=== PATIENT | female | born 1935 | race African-American/Black ===

== ENCOUNTER → 2016-10-06 | Outpatient (CLI) | payer MEDICARE, OTHER ==
--- NOTE | 2016-10-06 15:32 | RAD ---
Ultrasound of the right internal jugular vein 10/06/2016 Clinical history: History of Right internal jugular vein thrombosis. Technique: Using a combination of real-time ultrasound imaging and color-flow. Imaging techniques, duplex evaluation of the right internal jugular vein was performed. Multiple images were obtained. Findings: Comparison study is dated 08/03/2016. A central venous catheter is seen coursing along the portion of the right internal jugular vein, unchanged in position. Echogenic nonocclusive thrombus surrounds a portion of this catheter within the right internal jugular vein. This has improved since the previous examination. No new area of thrombosis is seen. Impression: Nonocclusive thrombus is seen involving the midportion of the right internal jugular vein which has improved since the previous study.
== END | disposition home or self-care (01) ==
LOC: CT 12:50
PROVIDERS: ATTEND Nurse Practitioner Family
DX: I82.C11 Acute embolism and thrombosis of right internal jugular vein (principal); Z86.718 Personal history of other venous thrombosis and embolism
CPT/HCPCS: 76536

== ENCOUNTER 2017-05-02 11:44 | Inpatient (IN) | payer MEDICARE, OTHER ==
[~2017-05-02] VITALS: Ht 157.5 cm; Wt 78.3 kg
[2017-05-02] MEDS ORDERED: FURO-69 PO (12:07)
[2017-05-02] MEDS ORDERED: CYCL5TAB PO (12:07)
[2017-05-02] MEDS ORDERED: POTA20TA82 PO (12:07)
[2017-05-02] MEDS ORDERED: METO50TA6 PO (12:07)
[2017-05-02] MEDS ORDERED: INSU100V31 SQ (12:07)
[2017-05-02] MEDS ORDERED: INSU100V13 SQ (12:07)
[2017-05-02] MEDS ORDERED: LEVO75TA5 PO (12:07)
[2017-05-02] MEDS ORDERED: ASPI325T8 PO (12:07)
[2017-05-02] MEDS ORDERED: RANI150T2 PO (12:07)
[2017-05-02] MEDS ORDERED: GABA-585 PO (12:07)
[2017-05-02] MEDS ORDERED: LEVO100T PO (12:10)
[2017-05-02 13:29] VITALS: BP 160/63
[2017-05-02] MEDS ORDERED: IV NORMAL SALINE 1,000ML 1,000 ML IV SCH (14:17)
[2017-05-02] MEDS ORDERED: APIX2.5T PO ×2 (14:28→17:44)
[2017-05-02] MEDS ORDERED: ONDANSETRON PF 4 MG/2 ML VIAL. IV PRN (14:30)
[2017-05-02] MEDS ORDERED: ACETAMINOPHEN 325 MG TABLET PO PRN (14:30)
[2017-05-02 14:32] LABS: BASO % 1 % (0-3); EOS % 0 % (0-3); HEMATOCRIT 34.2 % (36.0-47.0); HEMOGLOBIN 11.5 g/dL (12.0-15.5); LYMPH # 0.4 x10^3/uL (1.0-4.8); LYMPH % 10 % (24-48); MEAN CORPUSCULAR HEMOGLOBIN 30 pg (25-35); MEAN CORPUSCULAR HGB CONC 34 g/dL (31-37); MEAN CORPUSCULAR VOLUME 89 fL (79-100); MONO # 0.8 x10^3/uL (0.0-1.1); MONO % 20 % (0-9); NEUT # 2.8 x10^3uL (1.8-7.7); NEUT % 69 % (31-73); PLATELET COUNT 126 x10^3/uL (140-400); RED BLOOD COUNT 3.84 x10^6/uL (3.50-5.40); RED CELL DISTRIBUTION WIDTH 14.1 % (11.5-14.5)
[2017-05-02 14:52] LABS: ALBUMIN 3.1 g/dL (3.4-5.0); ALBUMIN/GLOBULIN RATIO 0.9 (1.0-1.7); CALCIUM 8.7 mg/dL (8.5-10.1); CREATININE 1.8 mg/dL (0.6-1.0); TOTAL PROTEIN 6.5 g/dL (6.4-8.2)
[2017-05-02 14:53] LABS: GFR 32.5; MAGNESIUM 1.5 mg/dL (1.8-2.4); POTASSIUM 4.1 mmol/L (3.5-5.1); TOTAL BILIRUBIN 0.5 mg/dL (0.2-1.0)
[2017-05-02] MEDS ORDERED: CYCLOBENZAPRINE 10 MG TABLET. PO SCH (15:00)
[2017-05-02 15:03] LABS: INFLUENZA A PATIENT NEGATIVE (NEGATIVE); INFLUENZA B PATIENT POSITIVE (NEGATIVE)
[2017-05-02] MEDS ORDERED: HYDROcodone/CHLORPHEN POLIS 5 ML SUS.ER.12H PO PRN (15:15)
[2017-05-02 15:19] LABS: % ATYL 1 % (0-0); % BANDS 4 % (0-9); % EOS 0 % (0-5); % LYMPHS 7 % (24-48); % MONOS 20 % (0-10); % SEGS 68 % (35-66); PLATELET CLUMP PRESENT; PLT ESTIMATE DECREASED (ADEQUATE)
--- NOTE | 2017-05-02 15:19 | RAD ---
CHEST AP ONLY History: [id number] cough and fever x's 3 days. Comparison: None. Findings: Cardiomediastinal silhouette is within normal limits for portable technique. Mild hazy opacity at the left lung base and to a lesser extent the right lung base. No dense lobar consolidation. No pneumothorax identified. No evidence of pleural effusion. Right chest wall port is identified. The tip overlies the right upper superior vena cava. Impression: Mild hazy opacity at both lower lungs, compatible with atelectasis or possibly mild infiltrate. No prior study available for comparison. Electronically signed by: Billy Jain MD (05/02/2017 3:15 PM) [id number]
[2017-05-02 15:20] LABS: STOMATOCYTES PRESENT; TOXIC GRANULATION PRESENT; TOXIC VACUOLATION MARKED
[2017-05-02] MEDS ORDERED: OSELTAMIVIR 75 MG CAPSULE PO SCH (16:00)
[2017-05-02] MEDS ORDERED: MAGNESIUM SULFATE 2GM 50 ML IV ONE (16:00)
[2017-05-02] MEDS ORDERED: INSULIN ASPART 30 UNIT SQ SCH (16:30)
[2017-05-02] MEDS: INSULIN ASPART 300 UNITS/3 ML INSULN.PEN SQ SCH ×3 (16:30→22:44)
[2017-05-02] MEDS: AZITHROMYCIN 500 MG in IV NORMAL SALINE 250ML 250 ML IV SCH (16:34)
[2017-05-02] MEDS: IV 1/2 NORMAL SALINE 1,000 ML IV SCH (16:34)
[2017-05-02] MEDS: cefTRIAXone IV Push 1 GM VIAL. IVP SCH (16:35)
[2017-05-02] MEDS: OSELTAMIVIR 30 MG CAPSULE PO SCH (17:00)
[2017-05-02] MEDS ORDERED: methylPREDNISolone SOD SUCC PF 125 MG/2 ML VIAL. IV ONE (18:00)
[2017-05-02] MEDS ORDERED: CYCLOBENZAPRINE 10 MG TABLET. PO PRN (19:30)
[2017-05-02 19:53] VITALS: BP 145/65
[2017-05-02] MEDS ORDERED: NON FORMULARY ITEM (Insulin Detemir (Levemir) 40 UNIT) SQ SCH (21:00)
[2017-05-02] MEDS: IPRATRPIUM/ALBUTEROL 0.5/2.5MG 3 ML NEBU. NEB SCH (21:28)
[2017-05-02] MEDS: APIXABAN 2.5 MG TABLET PO SCH (22:08)
[2017-05-02] MEDS: GABAPENTIN 100 MG CAPSULE. PO SCH (22:08)
[2017-05-02] MEDS: FAMOTIDINE 20 MG TABLET PO SCH (22:08)
[2017-05-02] MEDS: METOPROLOL TART IMMED RELEASE 50 MG TABLET PO SCH (22:09)
[2017-05-02] MEDS: INSULIN DETEMIR 300 UNITS/3 ML INSULN.PEN. SQ SCH (22:42)
[2017-05-02 23:00] VITALS: BP 119/61
[2017-05-03] MEDS: IV 1/2 NORMAL SALINE 1,000 ML IV SCH (03:57)
[2017-05-03] MEDS: IPRATRPIUM/ALBUTEROL 0.5/2.5MG 3 ML NEBU. NEB SCH ×4 (05:48→21:02)
[2017-05-03 06:33] VITALS: BP 114/63
[2017-05-03] MEDS: LEVOTHYROXINE 75 MCG TABLET PO SCH (06:42)
[2017-05-03 06:49] LABS: BASO % 0 % (0-3); EOS % 0 % (0-3); HEMATOCRIT 36.1 % (36.0-47.0); LYMPH # 0.6 x10^3/uL (1.0-4.8); LYMPH % 24 % (24-48); MEAN CORPUSCULAR HEMOGLOBIN 30 pg (25-35); MEAN CORPUSCULAR HGB CONC 33 g/dL (31-37); MEAN CORPUSCULAR VOLUME 90 fL (79-100); MONO # 0.1 x10^3/uL (0.0-1.1); MONO % 3 % (0-9); NEUT # 1.7 x10^3uL (1.8-7.7); NEUT % 73 % (31-73); PLATELET COUNT 168 x10^3/uL (140-400); RED BLOOD COUNT 4.02 x10^6/uL (3.50-5.40); RED CELL DISTRIBUTION WIDTH 13.7 % (11.5-14.5); WHITE BLOOD COUNT 2.4 x10^3/uL (4.0-11.0)
[2017-05-03 06:54] LABS: ALBUMIN 2.6 g/dL (3.4-5.0); ALBUMIN/GLOBULIN RATIO 0.6 (1.0-1.7); CALCIUM 8.4 mg/dL (8.5-10.1); CREATININE 1.8 mg/dL (0.6-1.0); GFR 32.5; POTASSIUM 4.2 mmol/L (3.5-5.1); TOTAL BILIRUBIN 0.2 mg/dL (0.2-1.0); TOTAL PROTEIN 6.7 g/dL (6.4-8.2)
[2017-05-03 07:16] LABS: BILIRUBIN,URINE NEG (NEG); CLARITY,URINE CLEAR; COLOR,URINE YELLOW; GLUCOSE,URINE 100 mg/dL (NEG); NITRITE,URINE NEG (NEG); UROBILINOGEN,URINE 0.2 mg/dL (0.2 mg/dL)
[2017-05-03 07:17] LABS: BACTERIA,URINE 0 /HPF (0-FEW); SQUAMOUS EPITHELIAL CELL,UR OCC /LPF; WBC,URINE 0 /HPF (0-4)
[2017-05-03] MEDS: INSULIN ASPART 300 UNITS/3 ML INSULN.PEN SQ SCH ×6 (07:30→21:33)
[2017-05-03] MEDS: POTASSIUM CHLORIDE 20 MEQ TABLET.ER. PO SCH ×2 (08:38→08:39)
[2017-05-03] MEDS: FUROSEMIDE 20 MG TABLET PO SCH ×2 (08:38→08:40)
[2017-05-03] MEDS: METOPROLOL TART IMMED RELEASE 50 MG TABLET PO SCH ×3 (08:38→21:13)
[2017-05-03] MEDS: APIXABAN 2.5 MG TABLET PO SCH ×2 (08:40→21:12)
[2017-05-03] MEDS: OSELTAMIVIR 30 MG CAPSULE PO SCH (08:40)
[2017-05-03] MEDS: GABAPENTIN 100 MG CAPSULE. PO SCH ×2 (08:40→21:13)
[2017-05-03] MEDS: methylPREDNISolone SOD SUCC PF 125 MG/2 ML VIAL. IV SCH ×3 (08:40→22:00)
[2017-05-03] MEDS: FAMOTIDINE 20 MG TABLET PO SCH ×2 (08:40→21:13)
[2017-05-03] MEDS ORDERED: ASPIRIN 325 MG TABLET PO SCH (09:00)
[2017-05-03] MEDS: IV NORMAL SALINE 1,000ML 1,000 ML IV SCH ×2 (11:06→22:32)
[2017-05-03 11:10] VITALS: BP 131/67
[2017-05-03] MEDS ORDERED: guaiFENesin DM 200MG/20MG 10 ML SYRUP PO PRN (12:30)
--- NOTE | 2017-05-03 13:51 | RAD ---
Indication: Dyspnea. Influenza positive. Elevated d-dimer. Technique: Ventilation imaging utilized 21 mCi xenon-133 inhaled. Perfusion imaging utilized 5.5 mCi technetium 99m labeled MAA IV. There is a chest radiograph from yesterday available for correlation. Findings: There is homogeneous uptake of radiotracer on ventilation imaging with mild retention on washout. No matched or mismatched defect on perfusion imaging is apparent. There is a defect related to the patient's port. Impression: Exam is low probability for pulmonary embolism. Retention of radiotracer on ventilation imaging can be a finding of air trapping.
[2017-05-03] MEDS: cefTRIAXone IV Push 1 GM VIAL. IVP SCH (15:08)
[2017-05-03] MEDS: AZITHROMYCIN 500 MG in IV NORMAL SALINE 250ML 250 ML IV SCH (16:04)
[2017-05-03 19:32] VITALS: BP 118/69
[2017-05-03 20:00] VITALS: BP 139/70
[2017-05-03] MEDS: INSULIN DETEMIR 300 UNITS/3 ML INSULN.PEN. SQ SCH (21:33)
--- NOTE | 2017-05-04 03:22 | PN ---
DATE: 05/03/2017 SUBJECTIVE: An 81-year-old female in with pneumonia and influenza B. The patient is making good progress overall. She says she is feeling much better overall. OBJECTIVE: VITAL SIGNS: Blood pressure 130/70, respiratory rate 20, pulse 60, afebrile. LUNGS: Diminished throughout, poor movement of air, but otherwise improved. CARDIOVASCULAR: Regular sinus rhythm, S1, S2, without murmur, rub, thrill, or extra heart sounds. ABDOMEN: Soft, nontender, no rebound or guarding. EXTREMITIES: No clubbing, cyanosis or edema. NEUROLOGIC: Pleasantly alert and oriented x 3. LABORATORY DATA: Blood sugar still somewhat elevated. Continue to monitor on that. IMPRESSION: Therefore of: 1. Influenza B with respiratory symptoms and manifestations. 2. Pneumonia of unspecified etiology, probable from influenza B. 3. Chronic kidney disease. 4. Type 2 diabetes. 5. Xoma-ep-fxdmjjnd protein malnutrition. PLAN: Continue with IV antibiotic therapy, aggressive pulmonary toilet. Make further evaluation on her as indicated per those results. MARS OBRIEN MD DR: JONO/andry JOB#: [id number] / [id number]
[2017-05-04 05:00] VITALS: BP 127/69
[2017-05-04] MEDS: IPRATRPIUM/ALBUTEROL 0.5/2.5MG 3 ML NEBU. NEB SCH (05:40)
[2017-05-04] MEDS: LEVOTHYROXINE 75 MCG TABLET PO SCH (05:42)
[2017-05-04] MEDS: methylPREDNISolone SOD SUCC PF 125 MG/2 ML VIAL. IV SCH (05:43)
[2017-05-04 06:40] LABS: CALCIUM 8.5 mg/dL (8.5-10.1); CREATININE 1.5 mg/dL (0.6-1.0); GFR 40.1
[2017-05-04 07:36] VITALS: BP 110/73
[2017-05-04] MEDS: OSELTAMIVIR 30 MG CAPSULE PO SCH (07:41)
[2017-05-04] MEDS: FAMOTIDINE 20 MG TABLET PO SCH (07:41)
[2017-05-04] MEDS: APIXABAN 2.5 MG TABLET PO SCH (07:41)
[2017-05-04] MEDS: FUROSEMIDE 20 MG TABLET PO SCH (07:41)
[2017-05-04] MEDS: GABAPENTIN 100 MG CAPSULE. PO SCH (07:41)
[2017-05-04] MEDS: INSULIN ASPART 300 UNITS/3 ML INSULN.PEN SQ SCH (07:42)
[2017-05-04] MEDS: POTASSIUM CHLORIDE 20 MEQ TABLET.ER. PO SCH (07:43)
[2017-05-04 09:00] VITALS: BP 100/62
[2017-05-04] MEDS: METOPROLOL TART IMMED RELEASE 50 MG TABLET PO SCH (09:00)
[2017-05-04] MEDS ORDERED: OSEL30CA PO (10:49)
[2017-05-04] MEDS ORDERED: DOXY100C2 PO (10:49)
[2017-05-04] MEDS ORDERED: PRED-220 PO (10:49)
[2017-05-04] MEDS ORDERED: predniSONE 10 MG TABLET ONE (11:12)
[2017-05-04] MEDS ORDERED: predniSONE 10 MG TABLET PO ONE (11:30)
[2017-05-04] MEDS ORDERED: AZITHROMYCIN 250 MG TABLET. PO SCH (17:00)
== END 2017-05-04 11:24 | disposition home or self-care (01) | DRG 194 ==
LOC: ICU 11:44 → UNDOADMIN 11:44 → ICU 12:58
PROVIDERS: ADMIT Family Medicine; ATTEND Family Medicine
DX: J10.01 Influenza due to other identified influenza virus with the same other identified influenza virus pneumonia (principal); E44.0 Moderate protein-calorie malnutrition; E11.22 Type 2 diabetes mellitus with diabetic chronic kidney disease; E11.40 Type 2 diabetes mellitus with diabetic neuropathy, unspecified; N18.9 Chronic kidney disease, unspecified; E03.9 Hypothyroidism, unspecified; I12.9 Hypertensive chronic kidney disease with stage 1 through stage 4 chronic kidney disease, or unspecified chronic kidney disease; Z79.4 Long term (current) use of insulin; Z85.3 Personal history of malignant neoplasm of breast; Z98.42 Cataract extraction status, left eye; Z98.41 Cataract extraction status, right eye; Z90.12 Acquired absence of left breast and nipple; Z88.2 Allergy status to sulfonamides; Z88.8 Allergy status to other drugs, medicaments and biological substances; Z68.31 Body mass index [BMI] 31.0-31.9, adult; K30 Functional dyspepsia; Z87.891 Personal history of nicotine dependence
CPT/HCPCS: 36415; 71045; 78582; 80048; 80053; 81001; 82947; 83605; 83735; 83880; 85007; 85025; 85379; 87040; 87086; 87641; 87804; 94640; 96374; A9540; A9558; J0456; J0696; J1815; J2930; J3475; J7030; J7050; J7512; J7620

== ENCOUNTER 2017-09-29 13:41 | Inpatient (IN) | payer MEDICARE, OTHER ==
[~2017-09-29] VITALS: Ht 142.2 cm; Wt 86.7 kg
[~2017-09-29 13:41] MED LIST: APIX2.5T PO; ASPI325T8 PO; CYCL5TAB PO; DOXY100C2 PO; FURO-69 PO; GABA-585 PO; INSU100V13 SQ; INSU100V31 SQ; LEVO100T PO; LEVO75TA5 PO; METO50TA6 PO; OSEL30CA PO; POTA20TA82 PO; PRED-220 PO; RANI150T2 PO
[2017-09-29 14:28] VITALS: BP 145/72
[2017-09-29 15:01] LABS: BASO # 0.1 x10^3/uL (0.0-0.2); BASO % 1 % (0-3); EOS % 1 % (0-3); HEMATOCRIT 38.1 % (36.0-47.0); HEMOGLOBIN 13.2 g/dL (12.0-15.5); LYMPH % 15 % (24-48); MEAN CORPUSCULAR HEMOGLOBIN 32 pg (25-35); MEAN CORPUSCULAR HGB CONC 35 g/dL (31-37); MEAN CORPUSCULAR VOLUME 92 fL (79-100); MONO # 0.5 x10^3/uL (0.0-1.1); MONO % 8 % (0-9); NEUT # 4.9 x10^3uL (1.8-7.7); NEUT % 76 % (31-73); PLATELET COUNT 227 x10^3/uL (140-400); RED BLOOD COUNT 4.16 x10^6/uL (3.50-5.40); WHITE BLOOD COUNT 6.5 x10^3/uL (4.0-11.0)
[2017-09-29 15:14] LABS: ALBUMIN 3.6 g/dL (3.4-5.0); ALBUMIN/GLOBULIN RATIO 0.8 (1.0-1.7); CREATININE 1.4 mg/dL (0.6-1.0); GFR 43.5; POTASSIUM 3.9 mmol/L (3.5-5.1); TOTAL BILIRUBIN 0.7 mg/dL (0.2-1.0); TOTAL PROTEIN 8.1 g/dL (6.4-8.2)
--- NOTE | 2017-09-29 16:19 | EKG ---
[address] [address] Test Date: 2017-09-29 Test Time: 15:34:43 Pat Name: ANGELINA BRUNNER Department: Room: 109 A Gender: F Circle Beveler: DL : 1935 Requested By: MARS OBRIEN Order Number: [id number] Reading MD: Measurements Intervals [place] Rate: 70 P: 47 MA: 194 QRS: -12 QRSD: 74 T: 64 QT: 422 QTc: 459 Interpretive Statements SINUS RHYTHM LEFTWARD AXIS OTHERWISE NORMAL ECG RI6.01 No previous ECG available for comparison
--- NOTE | 2017-09-29 16:21 | RAD ---
AP and Lateral Views of the Chest 09/29/2017 4:56 PM Indication: chest pain Comparison: Chest radiograph May 02, 2017 Findings: There is no focal consolidation or infiltrate identified. Heart size is normal. There is no evidence of pneumothorax or pleural effusion. No acute osseous changes are identified. Impression: No evidence of acute cardiopulmonary process. Electronically signed by: Sp Raygoza MD (09/29/2017 4:17 PM) [facility]
[2017-09-29] MEDS ORDERED: PNEUMOC CONJ VACC 23-VALENT 0.5 ML VIAL. VAX IM ONE (16:30)
[2017-09-29 19:24] VITALS: BP 148/81
[2017-09-29 20:16] LABS: BILIRUBIN,URINE NEG (NEG); CLARITY,URINE CLEAR; COLOR,URINE YELLOW; GLUCOSE,URINE NEG (NEG); NITRITE,URINE NEG (NEG); UROBILINOGEN,URINE 0.2 mg/dL (0.2 mg/dL)
[2017-09-29 20:19] LABS: BACTERIA,URINE 0 /HPF (0-FEW); RBC,URINE 0 /HPF (0-2); SQUAMOUS EPITHELIAL CELL,UR OCC /LPF; WBC,URINE RARE /HPF (0-4)
[2017-09-29] MEDS: APIXABAN 2.5 MG TABLET PO SCH (20:56)
[2017-09-29] MEDS: GABAPENTIN 100 MG CAPSULE. PO SCH (20:56)
[2017-09-29] MEDS: FAMOTIDINE 20 MG TABLET PO SCH (20:57)
[2017-09-29] MEDS: CYCLOBENZAPRINE 10 MG TABLET. PO SCH (20:57)
[2017-09-29] MEDS ORDERED: NON FORMULARY ITEM (Doxycycline Hyclate 1 CAP) PO SCH (21:00)
[2017-09-29] MEDS ORDERED: METOPROLOL TART IMMED RELEASE 50 MG TABLET PO SCH (21:00)
[2017-09-29] MEDS ORDERED: [UNRECOGNIZED DRUG - CODE] PO (21:00)
[2017-09-29] MEDS ORDERED: INSULIN GLARGINE 300 UNITS/3 ML INSULN.PEN. SQ SCH (21:00)
[2017-09-29] MEDS: HEPARIN PF for SUB-Q USE 5,000 UNIT/0.5 ML VIAL. SQ SCH (21:07)
--- NOTE | 2017-09-29 21:41 | NUR ---
The patient, ANGELINA BRUNNER, 81 y/o, F admitted by MARS OBRIEN MD, was given written information regarding hospital policies, unit procedures and contact persons. Valuables were checked and left at bedside.
[2017-09-29] MEDS ORDERED: DEXTROSE 50% 25 GM / 50ML DISP.SYRIN. IV PRN (21:45)
--- NOTE | 2017-09-29 22:22 | RAD ---
EXAM: VENTILATION/PERFUSION SCINTIGRAPHY. HISTORY: Elevated d-dimer, shortness of breath, chest pain. Assess for pulmonary embolism. TECHNIQUE: 38 mCi Xe-133 was inhaled and ventilation images were obtained. 6 mCi Tc-99m MAA was injected intravenously and perfusion images were obtained in multiple projections. COMPARISON: May 03, 2017, chest radiograph September 29, 2017. FINDINGS: Ventilation images demonstrate no clear ventilatory defects. There is radiotracer retention in the left apex. Perfusion images demonstrate no segmental defects. There is no clear change in the perfusion images since the prior study. IMPRESSION: 1. Low probability for pulmonary embolism. 2. Radiotracer retention in the left apex. Correlate for chronic obstructive pulmonary disease or other causes of focal air trapping. Electronically signed by: Hai Hutton MD (09/29/2017 10:18 PM) [facility]
[2017-09-29 23:03] VITALS: BP 147/79
[2017-09-30] MEDS: LEVOTHYROXINE 75 MCG TABLET PO SCH (05:01)
[2017-09-30] MEDS: HEPARIN PF for SUB-Q USE 5,000 UNIT/0.5 ML VIAL. SQ SCH ×2 (05:04→14:45)
[2017-09-30 05:12] VITALS: BP 132/73
[2017-09-30 07:19] LABS: BASO % 0 % (0-3); EOS # 0.1 x10^3/uL (0.0-0.7); EOS % 1 % (0-3); HEMATOCRIT 34.6 % (36.0-47.0); HEMOGLOBIN 11.7 g/dL (12.0-15.5); LYMPH # 1.7 x10^3/uL (1.0-4.8); LYMPH % 35 % (24-48); MEAN CORPUSCULAR HEMOGLOBIN 31 pg (25-35); MEAN CORPUSCULAR HGB CONC 34 g/dL (31-37); MEAN CORPUSCULAR VOLUME 93 fL (79-100); MONO # 0.6 x10^3/uL (0.0-1.1); MONO % 12 % (0-9); NEUT # 2.5 x10^3uL (1.8-7.7); NEUT % 52 % (31-73); PLATELET COUNT 211 x10^3/uL (140-400); RED BLOOD COUNT 3.74 x10^6/uL (3.50-5.40); RED CELL DISTRIBUTION WIDTH 14.2 % (11.5-14.5); WHITE BLOOD COUNT 4.8 x10^3/uL (4.0-11.0)
[2017-09-30 07:25] LABS: CALCIUM 8.7 mg/dL (8.5-10.1); CREATININE 1.3 mg/dL (0.6-1.0); GFR 47.3; POTASSIUM 3.3 mmol/L (3.5-5.1)
[2017-09-30] MEDS: INSULIN LISPRO 300 UNITS/3 ML INSULN.PEN. SQ SCH ×3 (08:00→17:03)
[2017-09-30] MEDS: ASPIRIN 325 MG TABLET PO SCH (08:30)
[2017-09-30] MEDS: amLODIPine BESYLATE 10 MG TABLET PO SCH (08:30)
[2017-09-30] MEDS: GABAPENTIN 100 MG CAPSULE. PO SCH ×2 (08:30→21:09)
[2017-09-30] MEDS: FAMOTIDINE 20 MG TABLET PO SCH ×2 (08:30→21:09)
[2017-09-30] MEDS: CYCLOBENZAPRINE 10 MG TABLET. PO SCH ×3 (08:30→21:09)
[2017-09-30] MEDS: APIXABAN 2.5 MG TABLET PO SCH ×2 (08:31→21:09)
[2017-09-30] MEDS: POTASSIUM CHLORIDE 20 MEQ TABLET.ER. PO SCH (08:31)
[2017-09-30] MEDS: hydroCHLOROthiazide 12.5 MG CAPSULE PO SCH (08:31)
[2017-09-30] MEDS: FUROSEMIDE 20 MG TABLET PO SCH (08:31)
[2017-09-30] MEDS: LOSARTAN 50 MG TABLET. PO SCH (08:32)
[2017-09-30] MEDS ORDERED: HCTHIAZID PO SCH (09:00)
[2017-09-30] MEDS ORDERED: predniSONE 10 MG TABLET PO SCH (09:00)
[2017-09-30] MEDS ORDERED: [UNRECOGNIZED DRUG - OTHER] PO SCH (09:00)
[2017-09-30] MEDS ORDERED: AMLODIPINE PO SCH (09:00)
[2017-09-30] MEDS ORDERED: OSELTAMIVIR 30 MG CAPSULE PO SCH (09:00)
[2017-09-30] MEDS ORDERED: VALSARTAN PO SCH (09:00)
[2017-09-30] MEDS: ACETAMINOPHEN 500 MG TABLET PO PRN ×2 (09:09→21:09)
[2017-09-30] MEDS ORDERED: ACETAMINOPHEN 500 MG TABLET PO PRN (09:15)
[2017-09-30] MEDS ORDERED: ELECTROLYTE (NON-ICU) PROTOCOL MC PRN (10:45)
[2017-09-30] MEDS ORDERED: oxyCODONE/APAP 5/325 1 TAB TABLET PO PRN (10:45)
--- NOTE | 2017-09-30 11:44 | RAD ---
CT of the head without contrast, 09/30/2017: HISTORY: Fall, head trauma, headache and dizziness There is mild cerebral atrophy. There are mild patchy deep white matter lucencies bilaterally compatible with chronic ischemic change. The ventricles are within normal limits in size. There is no shift of the midline structures. There is no evidence of acute intracranial hemorrhage or mass effect. Bilateral basal ganglia calcifications are present. There is moderate calcific plaquing of the distal vertebral and internal carotid arteries. IMPRESSION: 1. Chronic findings as described above. 2. No acute intracranial abnormality is detected. Electronically signed by: Lenin Jackson MD (09/30/2017 11:41 AM) [facility]
[2017-09-30 11:56] VITALS: BP 143/72
[2017-09-30 11:57] VITALS: BP 178/91
[2017-09-30 11:58] VITALS: BP 125/70
--- NOTE | 2017-09-30 12:54 | RAD ---
Carotid ultrasound, 09/30/2017: HISTORY: Unsteady gait, weakness Duplex evaluation of the carotid arteries and neck was performed including grayscale, color-flow and spectral Doppler analysis. There is mild intimal thickening in the common carotid arteries and smooth plaquing at the carotid bifurcations. The peak systolic velocity in the right internal carotid artery is 82 cm/s with an end-diastolic velocity of 19 cm/s. The internal carotid to common carotid artery ratio is 1.2. These Doppler findings suggest narrowing in the 0-50 percent diameter range. On the left the peak systolic velocity in the internal carotid artery is 81 cm/s with an end-diastolic velocity of 24 cm/s. The internal carotid to common carotid artery ratio is 1.0. Antegrade flow is present in both vertebral arteries in the neck. IMPRESSION: Mild atherosclerotic plaquing at both carotid bifurcations with underlying luminal narrowing in the 0-50 percent diameter range bilaterally. Note: Stenosis calculations for CT, MRA and conventional angiography are based upon determination of the distal ICA diameter in accordance with the NASCET methodology. Stenosis calculations for Doppler studies are derived from validated velocity criteria which are known to correlate with NASCET methodology of determining stenosis. Electronically signed by: Lenin Jackson MD (09/30/2017 12:50 PM) [facility]
[2017-09-30 15:15] VITALS: BP 150/78
[2017-09-30 20:57] VITALS: BP 117/67
[2017-09-30] MEDS: methylPREDNISolone SOD SUCC PF 40 MG/ML VIAL. IV SCH (21:10)
[2017-09-30] MEDS: INSULIN GLARGINE 300 UNITS/3 ML INSULN.PEN. SQ SCH (21:12)
[2017-10-01 00:11] VITALS: BP 135/73
[2017-10-01] MEDS: methylPREDNISolone SOD SUCC PF 40 MG/ML VIAL. IV SCH ×2 (05:24→21:53)
[2017-10-01] MEDS: LEVOTHYROXINE 75 MCG TABLET PO SCH (05:24)
[2017-10-01 05:33] VITALS: BP 99/61
[2017-10-01 07:15] LABS: BASO % 0 % (0-3); EOS % 0 % (0-3); HEMATOCRIT 34.5 % (36.0-47.0); HEMOGLOBIN 11.7 g/dL (12.0-15.5); LYMPH # 0.6 x10^3/uL (1.0-4.8); LYMPH % 10 % (24-48); MEAN CORPUSCULAR HEMOGLOBIN 31 pg (25-35); MEAN CORPUSCULAR HGB CONC 34 g/dL (31-37); MEAN CORPUSCULAR VOLUME 93 fL (79-100); MONO # 0.1 x10^3/uL (0.0-1.1); MONO % 1 % (0-9); NEUT # 5.2 x10^3uL (1.8-7.7); NEUT % 89 % (31-73); PLATELET COUNT 211 x10^3/uL (140-400); RED BLOOD COUNT 3.72 x10^6/uL (3.50-5.40); RED CELL DISTRIBUTION WIDTH 13.8 % (11.5-14.5); WHITE BLOOD COUNT 5.8 x10^3/uL (4.0-11.0)
[2017-10-01 07:27] LABS: CALCIUM 8.8 mg/dL (8.5-10.1); CREATININE 1.5 mg/dL (0.6-1.0); GFR 40.1; POTASSIUM 4.2 mmol/L (3.5-5.1)
[2017-10-01 08:34] LABS: % BANDS 2 % (0-9); % LYMPHS 9 % (24-48); % SEGS 89 % (35-66)
[2017-10-01 08:35] LABS: PLATELET CLUMP PRESENT; PLT ESTIMATE ADEQUATE (ADEQUATE)
[2017-10-01 08:38] LABS: POLYCHROMASIA SLIGHT
[2017-10-01 08:39] LABS: TOXIC GRANULATION SLIGHT
[2017-10-01] MEDS: ASPIRIN 325 MG TABLET PO SCH (08:41)
[2017-10-01] MEDS: hydroCHLOROthiazide 12.5 MG CAPSULE PO SCH (08:42)
[2017-10-01] MEDS: CYCLOBENZAPRINE 10 MG TABLET. PO SCH ×3 (08:42→21:53)
[2017-10-01] MEDS: FAMOTIDINE 20 MG TABLET PO SCH ×2 (08:42→21:53)
[2017-10-01] MEDS: APIXABAN 2.5 MG TABLET PO SCH ×2 (08:42→21:53)
[2017-10-01] MEDS: LOSARTAN 50 MG TABLET. PO SCH (08:43)
[2017-10-01] MEDS: GABAPENTIN 100 MG CAPSULE. PO SCH ×2 (08:43→21:53)
[2017-10-01] MEDS: POTASSIUM CHLORIDE 20 MEQ TABLET.ER. PO SCH (08:43)
[2017-10-01] MEDS: amLODIPine BESYLATE 10 MG TABLET PO SCH (08:44)
[2017-10-01] MEDS: INSULIN LISPRO 300 UNITS/3 ML INSULN.PEN. SQ SCH ×2 (08:49→17:25)
[2017-10-01] MEDS: FUROSEMIDE 20 MG TABLET PO SCH (09:00)
[2017-10-01] MEDS ORDERED: IV NORMAL SALINE 1,000ML 1,000 ML IV SCH (10:00)
[2017-10-01] MEDS ORDERED: DEXTROSE 50% 25 GM / 50ML DISP.SYRIN. IV PRN ×2 (10:30→12:30)
[2017-10-01 11:00] VITALS: BP 90/60
[2017-10-01] MEDS ORDERED: SODIUM PHOSPHATES 19/7GM 133 ML ENEMA. PR ONE (11:15)
[2017-10-01] MEDS ORDERED: INSULIN LISPRO 300 UNITS/3 ML INSULN.PEN. SQ SCH (12:00)
[2017-10-01] MEDS ORDERED: INSULIN LISPRO 300 UNITS/3 ML INSULN.PEN. SQ ONE (12:30)
--- NOTE | 2017-10-01 14:50 | PN ---
DATE: 09/30/2017 SUBJECTIVE: An 81-year-old female came in with severe chest pain, abdominal pain, neck pain, pain down her arms. The patient does have an elevated sed rate of 60. She is still complaining of severe pain in her neck and upper back, suspicious for polymyalgia rheumatica. The patient's imaging shows a V/Q scan, low probability for PE. Head CT, no acute findings. Check her carotid Dopplers for any signs of blockage less than 50% bilaterally. PLAN: We will continue to monitor the patient accordingly. May start her on some Solu-Medrol and make further evaluation on her as indicated. IMPRESSION: Chest pain, probable polymyalgia rheumatica. Continue with present drug regimen and make further evaluation on her as indicated. MARS OBRIEN MD DR: JONO/andry JOB#: [id number] / [id number]
[2017-10-01 15:28] VITALS: BP 101/52
--- NOTE | 2017-10-01 18:32 | NUR ---
Pt is feeling better today. Pain that is in neck/chest improved. Offered a shower, pt reported she would later. Pt requested enema. Ordered, pt also wanted to wait on that until later. Pt should go tomorrow. IVF started. Will continue to monitor.
[2017-10-01 19:40] VITALS: BP 135/76
[2017-10-01] MEDS: INSULIN GLARGINE 300 UNITS/3 ML INSULN.PEN. SQ SCH (21:54)
[2017-10-01 23:04] VITALS: BP 112/64
--- NOTE | 2017-10-02 03:20 | NUR ---
Pt found wandering around her room holding her IV catheter with tip intact. Pt and room covered in blood, pt states "I don't how this happened, I should just stay in bed at night." Pt oriented x3. VSS. Pt and room cleaned and pt put back to bed. Will continue to monitor closely.
--- NOTE | 2017-10-02 04:33 | PN ---
DATE: SUBJECTIVE: An 81-year-old female in with severe pain in her arms, neck, back. Did have a sed rate of 60. Started her on some IV Solu-Medrol, seems to be helping her somewhat. We will gradually taper her down on that. In any case, she is feeling better, able to move better. The patient receiving PT, OT. Blood pressure vacillating anywhere from 118/69-188/69, may not be accurate (NC). The patient denies any chest pain, shortness of breath, headaches, visual changes, any other symptoms. Lungs are clear. OBJECTIVE: MUSCULOSKELETAL: The patient has less tenderness to the upper back, shoulder and arm area. We will continue on the IV Solu-Medrol. CARDIOVASCULAR: Regular sinus rhythm. ABDOMEN: Soft, nontender. LUNGS: Clear. IMPRESSION: 1. Polymyalgia rheumatica, severe neck, arm pain, not responsive to outpatient treatment. 2. Type 2 diabetes, exacerbated with the use of steroids course, on sliding scale. MARS OBRIEN MD DR: JONO/andry JOB#: [id number] / [id number]
[2017-10-02] MEDS: LEVOTHYROXINE 75 MCG TABLET PO SCH (05:48)
[2017-10-02 05:54] VITALS: BP 135/76
--- NOTE | 2017-10-02 06:08 | NUR ---
Pt continuing to act confused and is now sitting on bedside completely dressed in street clothes with her conveyor monitor draped over IV pole. When asked how she is doing and if I can reattach her monitor she states "I haven't been able to go back to sleep and I can't get those wires to untangle. I hope I didn't wake you, were you able to get any sleep?"
[2017-10-02 06:51] LABS: ALBUMIN 3.1 g/dL (3.4-5.0); CREATININE 1.4 mg/dL (0.6-1.0); GFR 43.5; PHOSPHORUS 3.5 mg/dL (2.6-4.7); POTASSIUM 4.2 mmol/L (3.5-5.1)
[2017-10-02] MEDS: methylPREDNISolone SOD SUCC PF 40 MG/ML VIAL. IV SCH ×2 (09:00→09:21)
[2017-10-02] MEDS ORDERED: PRED-220 PO (09:12)
[2017-10-02] MEDS: GABAPENTIN 100 MG CAPSULE. PO SCH (09:20)
[2017-10-02] MEDS: FAMOTIDINE 20 MG TABLET PO SCH (09:20)
[2017-10-02] MEDS: FUROSEMIDE 20 MG TABLET PO SCH (09:20)
[2017-10-02] MEDS: CYCLOBENZAPRINE 10 MG TABLET. PO SCH (09:20)
[2017-10-02] MEDS: ASPIRIN 325 MG TABLET PO SCH (09:20)
[2017-10-02] MEDS: APIXABAN 2.5 MG TABLET PO SCH (09:21)
[2017-10-02] MEDS: POTASSIUM CHLORIDE 20 MEQ TABLET.ER. PO SCH (09:21)
[2017-10-02] MEDS: INSULIN LISPRO 300 UNITS/3 ML INSULN.PEN. SQ SCH (09:24)
--- NOTE | 2017-10-02 09:33 | PDOC ---
PROGRESS NOTES Assessment 1. Chest pain - CT ruled out. Continue asa. Check lipids. No beta merlyn as bp has been borderline. Check echocardiogram. Outpatient follow up after echo. 2. polymyalgia rheumatica - per PCP Subjective "ready to go home", no new complaints. Objective Vital Signs Date Time Temp Pulse Resp B/P (MAP) Pulse Ox O2 Delivery O2 Flow Rate FiO2 10/02/17 05:54 74 19 135/76 (95) 95 Room Air 10/01/17 19:40 97.4 Intake and Output 10/02/17 07:00 Intake Total 2240.31 ml Balance 2240.31 ml Intake Oral 1610 ml IV Total 310.31 ml Blood Product IV Normal Saline Flush 320 ml # Voids 3 Abdomen: Normal bowel sounds, Soft, No tenderness Heart: Regular rate, Normal S1, Normal S2 Extremities: No cyanosis, Normal pulses General: Alert, Oriented X3, Cooperative Lungs: Clear to auscultation, Normal air movement Neuro: Normal speech Psych/Mental Status: Mental status NL, Mood NL Review of Relevant I have reviewed the following items alma rosa (where applicable) has been applied. Labs Laboratory Tests Test 09/30/17 12:08 09/30/17 16:55 09/30/17 21:02 10/01/17 06:46 Glucose (Fingerstick) 192 mg/dL (70-99) 268 mg/dL (70-99) 148 mg/dL (70-99) White Blood Count 5.8 x10^3/uL (4.0-11.0) Red Blood Count 3.72 x10^6/uL (3.50-5.40) Hemoglobin 11.7 g/dL (12.0-15.5) Hematocrit 34.5 % (36.0-47.0) Mean Corpuscular Volume 93 fL (79-100) Mean Corpuscular Hemoglobin 31 pg (25-35) Mean Corpuscular Hemoglobin Concent 34 g/dL (31-37) Red Cell Distribution Width 13.8 % (11.5-14.5) Platelet Count 211 x10^3/uL (140-400) Neutrophils (%) (Auto) 89 % (31-73) Lymphocytes (%) (Auto) 10 % (24-48) Monocytes (%) (Auto) 1 % (0-9) Eosinophils (%) (Auto) 0 % (0-3) Basophils (%) (Auto) 0 % (0-3) Neutrophils # (Auto) 5.2 x10^3uL (1.8-7.7) Lymphocytes # (Auto) 0.6 x10^3/uL (1.0-4.8) Monocytes # (Auto) 0.1 x10^3/uL (0.0-1.1) Eosinophils # (Auto) 0.0 x10^3/uL (0.0-0.7) Basophils # (Auto) 0.0 x10^3/uL (0.0-0.2) Segmented Neutrophils % 89 % (35-66) Band Neutrophils % 2 % (0-9) Lymphocytes % 9 % (24-48) Toxic Granulation Slight Platelet Estimate Adequate (ADEQUATE) Platelet Clumps, EDTA Present Large Platelets Occ Polychromasia Slight Sodium Level 133 mmol/L (136-145) Potassium Level 4.2 mmol/L (3.5-5.1) Chloride Level 98 mmol/L (98-107) Carbon Dioxide Level 23 mmol/L (21-32) Anion Gap 12 (6-14) Blood Urea Nitrogen 18 mg/dL (7-20) Creatinine 1.5 mg/dL (0.6-1.0) Estimated GFR (Cockcroft-Gault) 40.1 Glucose Level 393 mg/dL (70-99) Calcium Level 8.8 mg/dL (8.5-10.1) Test 10/01/17 08:02 10/01/17 11:48 10/01/17 17:07 10/01/17 20:41 Glucose (Fingerstick) 364 mg/dL (70-99) 451 mg/dL (70-99) 284 mg/dL (70-99) 280 mg/dL (70-99) Test 10/02/17 06:04 10/02/17 07:46 Sodium Level 131 mmol/L (136-145) Potassium Level 4.2 mmol/L (3.5-5.1) Chloride Level 96 mmol/L (98-107) Carbon Dioxide Level 26 mmol/L (21-32) Anion Gap 9 (6-14) Blood Urea Nitrogen 26 mg/dL (7-20) Creatinine 1.4 mg/dL (0.6-1.0) Estimated GFR (Cockcroft-Gault) 43.5 Glucose Level 308 mg/dL (70-99) Calcium Level 9.0 mg/dL (8.5-10.1) Phosphorus Level 3.5 mg/dL (2.6-4.7) Albumin 3.1 g/dL (3.4-5.0) Glucose (Fingerstick) 301 mg/dL (70-99) Microbiology 09/29/17 Urine Culture - Final, Complete 09/29/17 Urine Culture Result 1 (ADIEL) - Final, Complete Medications Current Medications Apixaban (Eliquis) 2.5 mg BID PO Last administered on 10/02/17at 09:21; Start at 21:00 Aspirin (Mirella Aspirin) 325 mg DAILY PO Last administered on 10/02/17at 09:20; Start 09/30/17 at 09:00 Furosemide (Lasix) 20 mg DAILY PO Last administered on 10/02/17at 09:20; Start 09/30/17 at 09:00 Gabapentin (Neurontin) 100 mg BID PO Last administered on 10/02/17at 09:20; Start 09/29/17 at 21:00 Levothyroxine Sodium (Synthroid) 75 mcg DAILY06 PO Last administered on at 05:48; Start 09/30/17 at 06:00 Oseltamivir Phosphate (Tamiflu) 30 mg DAILY PO ; Start 09/30/17 at 09:00; Stop at 09:00; Status DC Prednisone (Prednisone) 60 mg DAILY PO ; Start 09/30/17 at 09:00; Stop 09/30/17 at 09:00; Status DC Cyclobenzaprine HCl (Flexeril) 10 mg TID PO Last administered on 10/02/17at 09: 20; Start 09/29/17 at 21:00 Non-Formulary Medication (Doxycycline Hyclate ) 1 cap BID PO ; Start 09/29/17 at 21:00; Stop 09/29/17 at 21:37; Status DC Insulin Glargine (Lantus) 40 units QHS SQ Last administered on 09/29/17at 21:07; Start 09/29/17 at 21:00; Stop 09/30/17 at 16:17; Status DC Metoprolol Tartrate (Lopressor) 50 mg BID PO ; Start 09/29/17 at 21:00; Stop 09/29 at 21:37; Status DC Potassium Chloride (Klor-Con) 20 meq DAILYWBKFT PO Last administered on at 09:21; Start 09/30/17 at 08:00 Famotidine (Pepcid) 20 mg BID PO Last administered on 10/02/17at 09:20; Start at 21:00 Pneumococcal Polyvalent Vaccine (Pneumovax 23) 0.5 ml ONCE ONCE VAX IM Last administered on 10/02/17at 09:31; Start 09/29/17 at 16:30; Stop 09/29/17 at 16:33; Status DC Heparin Sodium (Porcine) (Heparin Sq) 5,000 unit Q8HRS SQ Last administered on 09/30/17at 14:45; Start 09/29/17 at 22:00; Stop 09/30/17 at 15:22; Status DC Non-Formulary Medication (Amlodipine/ Valsartan/ Hcthiazid (Mgsad-Jpnkm-Hdhm 10- 160-12.5MG)) 1 tab DAILY PO ; Start 09/30/17 at 09:00; Status UNV Insulin Glargine (Lantus) 20 units QHS SQ Last administered on 10/01/17at 21:54 ; Start 09/30/17 at 21:00 Insulin Human Lispro (HumaLOG) 0-7 UNITS TIDWMEALS SQ Last administered on 10/01at 08:49; Start 09/30/17 at 08:00; Stop 10/01/17 at 10:30; Status DC Dextrose 12.5 gm PRN Q15MIN PRN IV SEE COMMENTS; Start 09/29/17 at 21:45; Stop 10/01/17 at 12:32; Status DC Amlodipine Besylate (Norvasc) 10 mg DAILY PO Last administered on 10/01/17at 08: 44; Start 09/30/17 at 09:00; Stop 10/01/17 at 09:59; Status DC Losartan Potassium (Cozaar) 100 mg DAILY PO Last administered on 10/01/17at 08: 43; Start 09/30/17 at 09:00; Stop 10/01/17 at 09:59; Status DC Hydrochlorothiazide (Microzide) 12.5 mg DAILY PO Last administered on 09/30/17at 08:31; Start 09/30/17 at 09:00; Stop 10/01/17 at 09:59; Status DC Acetaminophen (Tylenol) 1,000 mg PRN Q6HRS PRN PO PAIN / TEMP; Start 09/30/17 at 09:15 Acetaminophen (Tylenol) 500 mg PRN Q6HRS PRN PO PAIN / TEMP Last administered on 09/30/17at 21:09; Start 09/30/17 at 09:15 Info (Non-Icu Electrolyte Protocol) 1 ea CONT PRN PRN MC PER PROTOCOL; Start at 10:45 Oxycodone/ Acetaminophen (Percocet 5/325) 1 tab PRN Q6HRS PRN PO PAIN; Start at 10:45 Methylprednisolone Sodium Succinate (SOLU-Medrol 40MG VIAL) 40 mg Q8HRS IV Last administered on 10/01/17at 05:24; Start 09/30/17 at 22:00; Stop 10/01/17 at 10:37; Status DC Sodium Chloride 1,000 ml @ 75 mls/hr [id number] IV Last administered on at 13:27; Start 10/01/17 at 10:00 Insulin Human Lispro (HumaLOG) 0-7 UNITS TIDWMEALS SQ ; Start 10/01/17 at 12:00 ; Stop 10/01/17 at 12:20; Status DC Dextrose 12.5 gm PRN Q15MIN PRN IV SEE COMMENTS; Start 10/01/17 at 10:30; Stop 10/01/17 at 12:33; Status DC Methylprednisolone Sodium Succinate (SOLU-Medrol 40MG VIAL) 40 mg BID IV Last administered on 10/02/17at 09:21; Start 10/01/17 at 21:00 Sodium Biphosphate/ Sodium Phosphate (Fleet Adult) 133 ml 1X ONCE DC ; Start at 11:15; Stop 10/01/17 at 11:16; Status DC Insulin Human Lispro (HumaLOG) 0-9 UNITS TIDWMEALS SQ Last administered on 10/02at 09:24; Start 10/01/17 at 17:00 Dextrose 12.5 gm PRN Q15MIN PRN IV SEE COMMENTS; Start 10/01/17 at 12:30 Insulin Human Lispro (HumaLOG) 15 units 1X ONCE SQ Last administered on at 12:26; Start 10/01/17 at 12:30; Stop 10/01/17 at 12:31; Status DC Active Scripts Active Prednisone 10 Mg Tablet 10 Mg PO DAILY 30 Days start with 6 tablets a day and then reduce by a 1/2 tablets every third day stay o n 1/2 tablet. Eliquis (Apixaban) 2.5 Mg Tablet 2.5 Mg PO BID 30 Days Reported Nvxuf-Rpdev-Tcis 10-160-12.5MG (Amlodipine/Valsartan/Hcthiazid) 1 Each Tablet 1 Tab PO DAILY Synthroid (Levothyroxine Sodium) 100 Mcg Tablet 50 Mcg PO DAILY06 Levemir (Insulin Detemir) 100 Unit/1 Ml Vial 20 Unit SQ HS Cyclobenzaprine Hcl 5 Mg Tablet 1 Tab PO TID Lasix (Furosemide) 20 Mg Tablet 1 Tab PO DAILY Ranitidine Hcl 150 Mg Tablet 1 Tab PO BID Aspirin 325 Mg Tablet 1 Tab PO DAILY Potassium Chloride 20 Meq Tablet.er 20 Meq PO DAILY Gabapentin 100 Mg Capsule 100 Mg PO BID Vitals/I & O Vital Sign - Last 24 Hours 10/01/17 10/01/17 10/01/17 10/01/17 11:00 15:28 19:40 20:00 Temp 97.8 97.4 Pulse 68 74 75 Resp 18 18 18 B/P (MAP) 90/60 (70) 101/52 (68) 135/76 (95) Pulse Ox 97 98 94 O2 Delivery Room Air Room Air Room Air Room Air 10/01/17 10/02/17 23:04 05:54 Pulse 77 74 Resp 18 19 B/P (MAP) 112/64 (80) 135/76 (95) Pulse Ox 95 95 O2 Delivery Room Air Room Air Intake and Output 10/01/17 10/01/17 10/02/17 15:00 23:00 07:00 Intake Total 120 ml 1570.31 ml 550 ml Balance 120 ml 1570.31 ml 550 ml MCKAY NOONAN APRN Oct 02, 2017 09:33
--- NOTE | 2017-10-02 10:59 | NUR ---
Discharge Note: ANGELINA BRUNNER [facility] Discharge instructions and discharge home medications reviewed with Patient and a copy given. All questions have been answered and understanding verbalized. The following instructions and handouts were given: education regarding echo, prednisone; discharge instructions and script for Prednisone Discontinued lines and drains: Peripheral IV intact. Patient discharged to Home or Self Care withFamily Membervia Ambulated
--- NOTE | 2017-10-02 19:47 | DS ---
DATE OF DISCHARGE: 10/02/2017 The patient came in with chest pain, pain radiating to her left side of her neck, up or down her left arm. The patient was ruled out as an OR. The patient was seen by Cardiology, it also knows the patient has sed rate greater than 60. As a result of this, the patient was placed on IV steroids. The patient's V/Q scan was negative for any signs of PE. The patient also had a head CT negative. Pulmonary V/Q negative. Chest x-ray negative. The patient made excellent progress during the rest of her hospitalization. There were no complications. The patient was discharged home. Her blood sugars were controlled with insulin. IMPRESSION: Chest pain, unknown etiology; polymyalgia rheumatica; anemia of chronic disease; type 2 diabetes, increased with hyperglycemia secondary to steroids. PLAN: The patient will be discharged home and see [facility]AD and will continue to be monitored as an outpatient. MARS OBRIEN MD DR: JONO/andry JOB#: [id number] / [id number]
== END 2017-10-02 11:01 | disposition home or self-care (01) | DRG 547 ==
LOC: 1 SOUTH 13:57
PROVIDERS: ADMIT Family Medicine; ATTEND Family Medicine
DX: M35.3 Polymyalgia rheumatica (principal); D63.8 Anemia in other chronic diseases classified elsewhere; T38.0X5A Adverse effect of glucocorticoids and synthetic analogues, initial encounter; E11.65 Type 2 diabetes mellitus with hyperglycemia; R07.89 Other chest pain; E11.40 Type 2 diabetes mellitus with diabetic neuropathy, unspecified; I10 Essential (primary) hypertension; E89.0 Postprocedural hypothyroidism; R42 Dizziness and giddiness; M54.89 Other dorsalgia; Y92.89 Other specified places as the place of occurrence of the external cause; Z85.3 Personal history of malignant neoplasm of breast; Z92.21 Personal history of antineoplastic chemotherapy; Z79.899 Other long term (current) drug therapy
CPT/HCPCS: 36415; 70450; 71046; 78582; 80048; 80053; 80069; 81001; 82550; 82947; 84484; 85007; 85025; 85379; 85651; 87086; 90732; 93005; 93880; 96374; A9540; A9558; J1815; J2920; J7030

== ENCOUNTER → 2017-10-17 | Outpatient (CLI) | payer MEDICARE, OTHER ==
[2017-10-02 05:54] VITALS: BP 135/76
[~2017-10-17] MED LIST changes: +[UNRECOGNIZED DRUG - CODE] PO
--- NOTE | 2017-10-17 14:11 | CARD ---
MR#: [id number] Date of Study: 10/17/2017 Ordering Physician: MCKAY NOONAN, Referring Physician: MCKAY NOONAN, Tech: ADRIENNE Faust APPROVED REPORT EXAM: Two-dimensional and M-mode echocardiogram with Doppler and color Doppler. Other Information Quality : AverageHR: 81bpm INDICATION Chest Pain 2D DIMENSIONS Left Atrium(2D)2.8 (1.6-4.0cm)IVSd1.2 (0.7-1.1cm) Aortic Root(2D)2.5 (2.0-3.7cm)LVDd3.9 (3.9-5.9cm) LVOT Diameter2.0 (1.8-2.4cm)PWd1.2 (0.7-1.1cm) LVDs2.4 (2.5-4.0cm)FS (%) 36.7 % SV42.6 mlLVEF(%)67.3 (>50%) Aortic Valve AoV Peak Nilson.156.9cm/sAoV VTI34.7cm AO Peak GR.9.8mmHgLVOT Peak Nilson.89.2cm/s LVOT VTI 21.78cmAO Mean GR.5mmHg SAYRA (VMAX)1.53nx2YBU (VTI)2.00cm2 Mitral Valve MV E Wtlgrckf18.5cm/sMV DECEL [id number] MV A Jivwxblk724.7cm/sE/A Ratio0.7 Pulmonary Valve PV Peak Gaybunwr151.2cm/sPV Peak Grad.7mmHg Tricuspid Valve TR P. Btroyabv047jn/sRAP LVVDKGQC5cpDo TR Peak Gr.20mmHg Pulmonary Vein S1 Yckatsjt22.9cm/sD2 Emgtwgeo03.0cm/s LEFT VENTRICLE The left ventricle is normal size. There is mild concentric left ventricular hypertrophy. The left ve ntricular systolic function is normal. The ejection fraction is estimated at 60-65%. There is normal LV segmental wall motion. Transmitral Doppler flow pattern is Grade I-abnormal relaxation pattern. RIGHT VENTRICLE The right ventricle is normal size. The right ventricular systolic function is normal. ATRIA The left atrium size is normal. The right atrium size is normal. The interatrial septum is intact wit h no evidence for an atrial septal defect or patent foramen ovale as noted on 2-D or Doppler imaging. AORTIC VALVE The aortic valve is mildly thickened. Doppler and Color Flow revealed no significant aortic regurgita tion. There is no significant aortic valvular stenosis. There is no aortic valvular vegetation. MITRAL VALVE The mitral valve is mildly thickened. There is no evidence of mitral valve prolapse. There is no mitr al valve stenosis. Doppler and Color Flow revealed no mitral valve regurgitation noted. TRICUSPID VALVE The tricuspid valve is not well visualized. Doppler and Color Flow revealed mild tricuspid regurgitat ion. The PA pressure was estimated at 23 mmHg. There is no tricuspid valve prolapse or vegetation. Th ere is no tricuspid valve stenosis. PULMONIC VALVE The pulmonic valve is not well visualized. Doppler and Color Flow revealed trace pulmonic valvular re gurgitation. There is no pulmonic valvular stenosis. GREAT VESSELS The aortic root is normal in size. The IVC is normal in size and collapses >50% with inspiration. PERICARDIAL EFFUSION There is no pleural effusion. There is no evidence of significant pericardial effusion. Critical Notification Critical Value: No <Conclusion> The left ventricular systolic function is normal. The ejection fraction is estimated at 60-65%. There is normal LV segmental wall motion. Transmitral Doppler flow pattern is Grade I-abnormal relaxation pattern. Mild tricuspid regurgitation. The PA pressure was estimated at 23 mmHg. There is no evidence of significant pericardial effusion. Signed by : Angel Cordon, Electronically Approved : 10/17/2017 14:09:48
== END | disposition home or self-care (01) ==
LOC: ECHO 12:47
PROVIDERS: ATTEND Nurse Practitioner
DX: I36.1 Nonrheumatic tricuspid (valve) insufficiency (principal); I12.9 Hypertensive chronic kidney disease with stage 1 through stage 4 chronic kidney disease, or unspecified chronic kidney disease; E11.22 Type 2 diabetes mellitus with diabetic chronic kidney disease; N18.9 Chronic kidney disease, unspecified
CPT/HCPCS: 93306

== ENCOUNTER 2018-06-12 12:29 | Emergency (ER) | payer MEDICARE, OTHER ==
[~2018-06-12] VITALS: Ht 154.9 cm; Wt 76.2 kg
[~2018-06-12 12:29] MED LIST changes: +AMLO-282 PO; -[UNRECOGNIZED DRUG - CODE] PO
[2018-06-12] MEDS ORDERED: IV NORMAL SALINE 1,000ML 1,000 ML IV ONE (13:15)
[2018-06-12] MEDS ORDERED: ORPHENADRINE CITRATE 60 MG/2 ML VIAL. IV ONE (13:15)
[2018-06-12 13:23] LABS: BASO # 0.1 x10^3/uL (0.0-0.2); BASO % 1 % (0-3); EOS % 0 % (0-3); HEMATOCRIT 38.6 % (36.0-47.0); LYMPH # 0.9 x10^3/uL (1.0-4.8); LYMPH % 12 % (24-48); MEAN CORPUSCULAR HEMOGLOBIN 30 pg (25-35); MEAN CORPUSCULAR HGB CONC 34 g/dL (31-37); MEAN CORPUSCULAR VOLUME 88 fL (79-100); MONO # 0.6 x10^3/uL (0.0-1.1); MONO % 8 % (0-9); NEUT # 6.1 x10^3uL (1.8-7.7); NEUT % 80 % (31-73); PLATELET COUNT 248 x10^3/uL (140-400); RED BLOOD COUNT 4.38 x10^6/uL (3.50-5.40); RED CELL DISTRIBUTION WIDTH 13.5 % (11.5-14.5); WHITE BLOOD COUNT 7.7 x10^3/uL (4.0-11.0)
[2018-06-12 13:34] LABS: ALBUMIN 3.3 g/dL (3.4-5.0); ALBUMIN/GLOBULIN RATIO 0.8 (1.0-1.7); CALCIUM 8.9 mg/dL (8.5-10.1); CREATININE 1.4 mg/dL (0.6-1.0); GFR 43.3; MAGNESIUM 1.5 mg/dL (1.8-2.4); POTASSIUM 3.6 mmol/L (3.5-5.1); TOTAL BILIRUBIN 0.5 mg/dL (0.2-1.0); TOTAL PROTEIN 7.7 g/dL (6.4-8.2)
--- NOTE | 2018-06-12 14:47 | RAD ---
CT scan of the head without contrast 06/12/2018 Clinical History: Right-sided neck pain and swelling. History of falls with head trauma, headaches and dizziness Technique: Unenhanced, contiguous, 5 mm axial sections were obtained through the head. One or more of the following individualized dose reduction techniques were utilized for this study: 1. Automated exposure control. 2. Adjustment of the mA and/or kV according to patient size. 3. Use of iterative reconstruction technique. Findings: Comparison study is dated 09/30/2017. There is generalized parenchymal atrophy. Areas of decreased attenuation are seen within the periventricular and subcortical white matter of both cerebral hemispheres consistent with areas of small vessel ischemic disease. No acute parenchymal abnormality is seen. No extra-axial fluid collection is noted. No skull fracture is seen. Impression: No acute intracranial abnormality is seen. CT scan of the neck without contrast 06/12/2018 Clinical history: Right-sided neck pain and swelling. Technique: Unenhanced, contiguous, 3 mm axial sections were obtained through the neck. One or more of the following individualized dose reduction techniques were utilized for this study: 1. Automated exposure control. 2. Adjustment of the mA and/or kV according to patient size. 3. Use of iterative reconstruction technique. Findings: The mucosal structures of the nasopharynx, oropharynx, hypopharynx and larynx are within normal limits. The parotid and submandibular glands are within normal limits. Prominent likely reactive cervical lymph nodes are seen. No abnormal soft tissue mass is seen within the neck. The patient is edentulous. Atherosclerotic calcifications in the region of the carotid bifurcations. Degenerative changes are seen involving the uncovertebral and facet joints throughout the cervical spine. IMPRESSION: No acute abnormality is seen. Electronically signed by: Hipolito Strickland MD (06/12/2018 2:44 PM) [id number]
[2018-06-12] MEDS ORDERED: MAGNESIUM SULFATE 2GM 50 ML IV ONE (15:00)
--- NOTE | 2018-06-12 15:24 | RAD ---
CT scan of the head without contrast 06/12/2018 Clinical History: Right-sided neck pain and swelling. History of falls with head trauma, headaches and dizziness Technique: Unenhanced, contiguous, 5 mm axial sections were obtained through the head. One or more of the following individualized dose reduction techniques were utilized for this study: 1. Automated exposure control. 2. Adjustment of the mA and/or kV according to patient size. 3. Use of iterative reconstruction technique. Findings: Comparison study is dated 09/30/2017. There is generalized parenchymal atrophy. Areas of decreased attenuation are seen within the periventricular and subcortical white matter of both cerebral hemispheres consistent with areas of small vessel ischemic disease. No acute parenchymal abnormality is seen. No extra-axial fluid collection is noted. No skull fracture is seen. Impression: No acute intracranial abnormality is seen. CT scan of the neck without contrast 06/12/2018 Clinical history: Right-sided neck pain and swelling. Technique: Unenhanced, contiguous, 3 mm axial sections were obtained through the neck. One or more of the following individualized dose reduction techniques were utilized for this study: 1. Automated exposure control. 2. Adjustment of the mA and/or kV according to patient size. 3. Use of iterative reconstruction technique. Findings: The mucosal structures of the nasopharynx, oropharynx, hypopharynx and larynx are within normal limits. The parotid and submandibular glands are within normal limits. Prominent likely reactive cervical lymph nodes are seen. No abnormal soft tissue mass is seen within the neck. The patient is edentulous. Atherosclerotic calcifications in the region of the carotid bifurcations. Degenerative changes are seen involving the uncovertebral and facet joints throughout the cervical spine. IMPRESSION: No acute abnormality is seen. Electronically signed by: Hipolito Self MD (06/12/2018 2:44 PM) [id number] DICTATED AND SIGNED BY: HIPOLITO SELF MD DATE: 06/12/18 [id number] CC: MARS OBRIEN MD; OTIS LOAIZA DO ~ MTDD
--- NOTE | 2018-06-12 16:33 | RAD ---
Right upper extremity venous Doppler June 12, 2018 INDICATION: History of DVT. COMPARISON: 04/04/2018 TECHNIQUE: Sonographic evaluation of the right upper extremity venous system was performed utilizing grayscale, color Doppler and spectral waveform analysis. FINDINGS: There is persistent thrombus identified within the right internal jugular vein, similar in extent with associated calcification. Right subclavian vein, cephalic vein, brachial vein and radial vein are patent without thrombus. Basilic, ulnar and axillary veins are patent. There is normal color Doppler and compressibility where possible. 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 No new DVT is identified. Electronically signed by: Kira Garza MD (06/12/2018 4:30 PM) [facility]
--- NOTE | 2018-06-12 16:47 | RAD ---
Clinical indications: Hypertension. Smoking history. Right-sided neck pain and swelling. Duplex sonography of the cervical portion of both carotid arteries was performed including color flow imaging and spectral waveform analysis with flow velocity measurement and dias scale evaluation. Right side: Peak systolic flow velocity of the CCA is 78 cm/sec. Peak systolic flow velocity of the ICA is 64 cm/sec. Thus, the ICA/CCA ratio is 0.82. Peak end diastolic flow velocity of the ICA is 17 cm/sec. The peak systolic velocity of the ECA is 125 cm/sec. Left side: Peak systolic flow velocity of the CCA is 73 cm/sec. Peak systolic flow velocity of the ICA is 93 cm/sec. Thus, the ICA/CCA ratio is 1.27. Peak end diastolic flow velocity of the ICA is 21 cm/sec. Peak systolic flow velocity of the ECA is 101 cm/sec. There is mild calcified plaque within the carotid bifurcations bilaterally which is less than 50%.. Antegrade vertebral flow is seen bilaterally. The measurements were made using the NASCET criteria. Impression: Mild plaque formation is seen within the carotid bifurcations bilaterally which is less than 50%.. Electronically signed by: Trevon Dale MD (06/12/2018 4:44 PM) [id number]
[2018-06-12] MEDS ORDERED: ACET-704 PO (17:41)
[2018-06-12] MEDS ORDERED: ORPH-16 PO (17:41)
--- NOTE | 2018-06-12 17:41 | PHYS DOC ---
Past History Past Medical History: Cancer, Diabetes, Hypertension, Hypothyroid, Renal Disease Past Surgical History: Cancer Surgery Alcohol Use: None Drug Use: None Adult General Chief Complaint Chief Complaint: Neck Pain HPI HPI 82 year old female presents with report of right sided neck pain with radiation down to upper back which started yesterday. Reports started as stiffness and now is a throbbing with intermittent sharpness. Reports worse with movement. Denies fever/chills. Reports history of port-o-cath to right upper chest with subsequent DVT for which patient has been taking blood thinners. Reports concern that this pain might be secondary to this issue. Reports she follows with her oncologist and has had this area checked by him every 3 months or so. Denies trauma. Denies rash. Review of Systems Review of Systems Constitutional: Denies fever or chills [] Eyes: Denies change in visual acuity, redness, or eye pain [] HENT: Denies nasal congestion or sore throat [] Respiratory: Denies cough or shortness of breath [] Cardiovascular: Denies chest pain, pleuritic pain, or palpitations GI: Denies abdominal pain, nausea, vomiting, or diarrhea [] : Denies dysuria or hematuria [] Musculoskeletal: Reports neck and upper back pain; denies extremity pain or swelling Integument: Denies rash or skin lesions [] Neurologic: Denies headache, focal weakness or sensory changes [] Complete systems were reviewed and found to be within normal limits, except as documented in this note. Current Medications Current Medications Current Medications Medications (Trade) Dose Ordered Sig/Tenzin Start Time Stop Time Status Last Admin Dose Admin Fentanyl Citrate (Fentanyl 2ml Vial) 25 mcg 1X ONCE 06/12/18 17:00 06/12/18 17:01 DC 06/12/18 17:34 25 MCG Magnesium Sulfate 50 ml @ 25 mls/hr 1X ONCE 06/12/18 15:00 06/12/18 16:59 DC 06/12/18 16:18 25 MLS/HR Orphenadrine Citrate (Norflex) 60 mg 1X ONCE 06/12/18 13:15 06/12/18 13:36 DC 06/12/18 13:22 60 MG Sodium Chloride 1,000 ml @ 1,000 mls/hr 1X ONCE 06/12/18 13:15 06/12/18 14:14 DC 06/12/18 13:22 1,000 MLS/HR Allergies Allergies Allergies Coded Allergies Type Severity Reaction Last Updated Verified pregabalin Allergy Severe Anaphylaxis 05/02/17 Yes bacitracin Allergy Intermediate Hives 05/02/17 Yes neomycin Allergy Intermediate Hives 05/02/17 Yes polymyxin B Allergy Intermediate Hives 05/02/17 Yes Sulfa (Sulfonamide Antibiotics) Allergy Mild Hives 05/02/17 Yes erythromycin base Allergy Mild Hives 05/02/17 Yes diazepam Allergy Unknown 06/12/18 Yes ether Allergy Unknown 06/12/18 Yes Physical Exam Physical Exam Constitutional: Well developed, well nourished, no acute distress, non-toxic appearance. [] HENT: Normocephalic, atraumatic, oropharynx moist Eyes: PERRL, EOMI, conjunctiva normal, no discharge. [] Neck: Normal range of motion, some pain on rotation to right, mild right paraspinal tenderness, supple, no meningeal signs Cardiovascular: Heart rate regular rhythm, no murmur [] Lungs & Thorax: Bilateral breath sounds clear to auscultation [] Abdomen: Soft, no tenderness Skin: Warm, dry, no erythema, no rash. [] Back: No tenderness, no CVA tenderness. [] Extremities: ROM intact, some pain to base of neck on right with ROM about right shoulder, no edema. [] Neurologic: Alert and oriented X 3, normal motor function, normal sensory function, no focal deficits noted. [] Psychologic: Affect normal, judgement normal, mood normal. [] Current Patient Data Vital Signs Vital Signs Date Time Temp Pulse Resp B/P (MAP) Pulse Ox O2 Delivery O2 Flow Rate FiO2 06/12/18 17:34 18 98 Room Air 06/12/18 14:34 98 150/98 (115) 06/12/18 12:43 97.9 Lab Results Laboratory Tests Test 06/12/18 13:11 White Blood Count 7.7 x10^3/uL (4.0-11.0) Red Blood Count 4.38 x10^6/uL (3.50-5.40) Hemoglobin 13.0 g/dL (12.0-15.5) Hematocrit 38.6 % (36.0-47.0) Mean Corpuscular Volume 88 fL (79-100) Mean Corpuscular Hemoglobin 30 pg (25-35) Mean Corpuscular Hemoglobin Concent 34 g/dL (31-37) Red Cell Distribution Width 13.5 % (11.5-14.5) Platelet Count 248 x10^3/uL (140-400) Neutrophils (%) (Auto) 80 % (31-73) H Lymphocytes (%) (Auto) 12 % (24-48) L Monocytes (%) (Auto) 8 % (0-9) Eosinophils (%) (Auto) 0 % (0-3) Basophils (%) (Auto) 1 % (0-3) Neutrophils # (Auto) 6.1 x10^3uL (1.8-7.7) Lymphocytes # (Auto) 0.9 x10^3/uL (1.0-4.8) L Monocytes # (Auto) 0.6 x10^3/uL (0.0-1.1) Eosinophils # (Auto) 0.0 x10^3/uL (0.0-0.7) Basophils # (Auto) 0.1 x10^3/uL (0.0-0.2) Prothrombin Time 10.4 SEC (9.4-11.4) Prothrombin Time INR 1.0 (0.9-1.1) PTT 27 SEC (23-33) Sodium Level 141 mmol/L (136-145) Potassium Level 3.6 mmol/L (3.5-5.1) Chloride Level 101 mmol/L (98-107) Carbon Dioxide Level 32 mmol/L (21-32) Anion Gap 8 (6-14) Blood Urea Nitrogen 10 mg/dL (7-20) Creatinine 1.4 mg/dL (0.6-1.0) H Estimated GFR (Cockcroft-Gault) 43.3 BUN/Creatinine Ratio 7 (6-20) Glucose Level 222 mg/dL (70-99) H Calcium Level 8.9 mg/dL (8.5-10.1) Magnesium Level 1.5 mg/dL (1.8-2.4) L Total Bilirubin 0.5 mg/dL (0.2-1.0) Aspartate Amino Transferase (AST) 13 U/L (15-37) L Alanine Aminotransferase (ALT) 12 U/L (14-59) L Alkaline Phosphatase 138 U/L (46-116) H Total Protein 7.7 g/dL (6.4-8.2) Albumin 3.3 g/dL (3.4-5.0) L Albumin/Globulin Ratio 0.8 (1.0-1.7) L EKG EKG [] Radiology/Procedures Radiology/Procedures PROCEDURE: CT HEAD AND CERVICAL SPINE WO CT scan of the head without contrast 06/12/2018 Clinical History: Right-sided neck pain and swelling. History of falls with head trauma, headaches and dizziness Technique: Unenhanced, contiguous, 5 mm axial sections were obtained through the head. One or more of the following individualized dose reduction techniques were utilized for this study: 1. Automated exposure control. 2. Adjustment of the mA and/or kV according to patient size. 3. Use of iterative reconstruction technique. Findings: Comparison study is dated 09/30/2017. There is generalized parenchymal atrophy. Areas of decreased attenuation are seen within the periventricular and subcortical white matter of both cerebral hemispheres consistent with areas of small vessel ischemic disease. No acute parenchymal abnormality is seen. No extra-axial fluid collection is noted. No skull fracture is seen. Impression: No acute intracranial abnormality is seen. CT scan of the neck without contrast 06/12/2018 Clinical history: Right-sided neck pain and swelling. Technique: Unenhanced, contiguous, 3 mm axial sections were obtained through the neck. One or more of the following individualized dose reduction techniques were utilized for this study: 1. Automated exposure control. 2. Adjustment of the mA and/or kV according to patient size. 3. Use of iterative reconstruction technique. Findings: The mucosal structures of the nasopharynx, oropharynx, hypopharynx and larynx are within normal limits. The parotid and submandibular glands are within normal limits. Prominent likely reactive cervical lymph nodes are seen. No abnormal soft tissue mass is seen within the neck. The patient is edentulous. Atherosclerotic calcifications in the region of the carotid bifurcations. Degenerative changes are seen involving the uncovertebral and facet joints throughout the cervical spine. IMPRESSION: No acute abnormality is seen. Electronically signed by: Hipolito Strickland MD (06/12/2018 2:44 PM) [id number] PROCEDURE: DOPPLER CAROTID RIGHT Clinical indications: Hypertension. Smoking history. Right-sided neck pain and swelling. Duplex sonography of the cervical portion of both carotid arteries was performed including color flow imaging and spectral waveform analysis with flow velocity measurement and dias scale evaluation. Right side: Peak systolic flow velocity of the CCA is 78 cm/sec. Peak systolic flow velocity of the ICA is 64 cm/sec. Thus, the ICA/CCA ratio is 0.82. Peak end diastolic flow velocity of the ICA is 17 cm/sec. The peak systolic velocity of the ECA is 125 cm/sec. Left side: Peak systolic flow velocity of the CCA is 73 cm/sec. Peak systolic flow velocity of the ICA is 93 cm/sec. Thus, the ICA/CCA ratio is 1.27. Peak end diastolic flow velocity of the ICA is 21 cm/sec. Peak systolic flow velocity of the ECA is 101 cm/sec. There is mild calcified plaque within the carotid bifurcations bilaterally which is less than 50%.. Antegrade vertebral flow is seen bilaterally. The measurements were made using the NASCET criteria. Impression: Mild plaque formation is seen within the carotid bifurcations bilaterally which is less than 50%.. Electronically signed by: Trevon Dale MD (06/12/2018 4:44 PM) [id number] PROCEDURE: VENOUS UPPER EXTREMITY RIGHT Right upper extremity venous Doppler June 12, 2018 INDICATION: History of DVT. COMPARISON: 04/04/2018 TECHNIQUE: Sonographic evaluation of the right upper extremity venous system was performed utilizing grayscale, color Doppler and spectral waveform analysis. FINDINGS: There is persistent thrombus identified within the right internal jugular vein, similar in extent with associated calcification. Right subclavian vein, cephalic vein, brachial vein and radial vein are patent without thrombus. Basilic, ulnar and axillary veins are patent. There is normal color Doppler and compressibility where possible. 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 No new DVT is identified. Electronically signed by: Kira Garza MD (06/12/2018 4:30 PM) [facility] Course & Med Decision Making Course & Med Decision Making Pertinent Labs and Imaging studies reviewed. (See chart for details) Elderly patient presents with right sided neck pain. Hx of known DVT to area of concern which is currently being treated. No history of focal trauma. Patient neurologically intact. Afebrile. NO meningeal signs. CT head/neck without acute process. Carotid dopplers with some stenosis. Venous doppler notes stable. RIJ thrombus. Labs obtained and posted to chart. Patient stable for discharge home with outpatient follow-up with PCP/Pain management. Pain referral provided. Discussed findings and plan with patient, who acknowledges understanding and agreement. Dragon Disclaimer Dragon Disclaimer This electronic medical record was generated, in whole or in part, using a voice recognition dictation system. Departure Departure: Impression: Primary Impression: Neck pain Disposition: 01 HOME, SELF-CARE Condition: STABLE Referrals: MARS OBRIEN MD (PCP) Patient Instructions: Cervical Radiculopathy, [id number] Additional Instructions: Please follow with Dr. Fahad Garcia (physical medicine and rehab) at [address], [address] [place] [address] Scripts Orphenadrine Citrate (ORPHENADRINE CITRATE) 100 Mg Tablet.er 1 TAB PO BID PRN for MUSCLE PAIN, #14 TAB 0 Refills Prov: OTIS LOAIZA DO 06/12/18 Acetaminophen With Codeine (TYLENOL WITH CODEINE #3 TABLET) 1 Each Tablet 1 TAB PO Q6HRS PRN for PAIN, #14 TAB Prov: OTIS LOAIZA DO 06/12/18 OTIS LOAIZA DO Jun 12, 2018 17:41
[2018-06-12 18:13] VITALS: BP 145/87
== END 2018-06-12 18:14 | disposition home or self-care (01) ==
LOC: ER 12:29
DX: M54.2 Cervicalgia (principal); R42 Dizziness and giddiness; R22.1 Localized swelling, mass and lump, neck; R22.41 Localized swelling, mass and lump, right lower limb; E11.9 Type 2 diabetes mellitus without complications; I10 Essential (primary) hypertension; E03.9 Hypothyroidism, unspecified; N28.9 Disorder of kidney and ureter, unspecified; Z88.1 Allergy status to other antibiotic agents; Z88.2 Allergy status to sulfonamides; Z88.8 Allergy status to other drugs, medicaments and biological substances
CPT/HCPCS: 36415; 70450; 70490; 72125; 80053; 83735; 85025; 85610; 85730; 93882; 93971; 96374; 96375; 99284; J2360; J3010; J3475; 96365; 96366; J7030

== ENCOUNTER 2018-06-15 23:45 | Inpatient (IN) | payer MEDICARE, OTHER ==
[~2018-06-15] VITALS: Ht 154.9 cm; Wt 78.1 kg
[~2018-06-15 23:45] MED LIST changes: +ACET-704 PO; +ORPH-16 PO
--- NOTE | 2018-06-15 23:59 | ED.ADGEN ---
Past History Past Medical History: Arthritis, Cancer, Diabetes, Hypertension, Hypothyroid, Renal Disease Past Surgical History: Cancer Surgery Alcohol Use: None Drug Use: None Adult General Chief Complaint Chief Complaint ",, I was here the other day... 06/12... I seen a Dr. Perales... but I am no better...".. " I am still hurting every joint,.. my muscles.. I am still weak.. just give out if .. If do anything... ".. " I had an episode like this about a year ago.. and they gave me Prednisone or a steroid and I got better.... but I have so many problems over the years.. Cancer. blood clots... I just not sure... " HPI HPI Patient is a 82 year old female who presents with nausea, malaise, myalgia , arthralgia, cephalgia , and generalized weakness. Patient stated symptoms started approximately a week ago. Patient does have significant medical history with breast cancer 2, treated with surgery chemotherapy and radiation, thyroid cancer treated with surgery, subclavian thrombus/port thrombus, arthritis, hypertension, anemia, hypothyroid, arthritis, degenerative joint disease, deconditioning, renal insufficiency, and gastritis. Patient denies any travel, specific ill contacts, or trauma. Patient normally follows with Dr. Tate. Patient evaluated in the emergency room on 06/[address] Perales. Review of Systems Review of Systems Constitutional: Subjective fever or chills [] Eyes: Denies change in visual acuity, redness, or eye pain [] HENT: Denies nasal congestion or sore throat [] Respiratory: Nonproductive cough cough Cardiovascular: No additional information not addressed in HPI [] GI: Denies abdominal pain, nausea, vomiting, bloody stools or diarrhea [] : Denies dysuria or hematuria [] Musculoskeletal: Chronic back pain and joint pain [] recent exacerbation of arthralgia and myalgia. Complaints of generalized weakness Integument: Denies rash or skin lesions [] Neurologic: Mild persistent headache,. Denies focal weakness or sensory changes [] Endocrine: Denies polyuria or polydipsia [] All other systems were reviewed and found to be within normal limits, except as documented in this note. Family History Family History Daughter has multiple arthritic complaints Current Medications Current Medications Current Medications Medications (Trade) Dose Ordered Sig/Tenzin Start Time Stop Time Status Last Admin Dose Admin Methylprednisolone Sodium Succinate (SOLU-Medrol 125MG VIAL) 125 mg 1X ONCE 06/16/18 03:30 06/16/18 03:31 UNV Ondansetron HCl (Zofran Odt) 8 mg 1X ONCE 06/16/18 00:30 06/16/18 01:29 DC 06/16/18 01:55 8 MG Sodium Chloride 1,000 ml @ 100 mls/hr Q10H 06/16/18 00:30 06/16/18 10:29 06/16/18 01:56 100 MLS/HR Allergies Allergies Allergies Coded Allergies Type Severity Reaction Last Updated Verified pregabalin Allergy Severe Anaphylaxis 05/02/17 Yes bacitracin Allergy Intermediate Hives 05/02/17 Yes neomycin Allergy Intermediate Hives 05/02/17 Yes polymyxin B Allergy Intermediate Hives 05/02/17 Yes Sulfa (Sulfonamide Antibiotics) Allergy Mild Hives 05/02/17 Yes erythromycin base Allergy Mild Hives 05/02/17 Yes diazepam Allergy Unknown 06/12/18 Yes ether Allergy Unknown 06/12/18 Yes Physical Exam Physical Exam Constitutional: no acute distress, non-toxic appearance. [] HENT: Normocephalic, atraumatic, bilateral external ears normal, oropharynx moist, no oral exudates, nose normal. [] Eyes: PERRLA, EOMI, conjunctiva normal, no discharge. [] Neck: Normal range of motion, generalized trapezius tenderness, supple, no stridor. [] Cardiovascular: Tachycardia Heart rate regular rhythm, no murmur , PMI to the left Lungs & Thorax: Bilateral breath sounds equal at apex on auscultation []. Some basilar crackles. Surgery scars both breast. Port scar on right. Abdomen: Bowel sounds normal, soft, no tenderness, no masses, no pulsatile masses. Old surgery scar. Obese. Skin: Warm, dry, no erythema, no rash. Poor turgor Back: No tenderness, no CVA tenderness. [] Old surgery scar. Extremities: Generalized muscle and joint tenderness, no cyanosis, no clubbing, ROM intact, ankle edema. [] Neurologic: Alert and oriented X 3, moves all extremities on request, distal sensory present, no gross focal deficits noted. []DTRs +2 patella and brachial. [place] Helper equal. Psychologic: Affect anxious , judgement normal, mood normal. []No obvious confusion. Good historian. Current Patient Data Vital Signs Vital Signs Date Time Temp Pulse Resp B/P (MAP) Pulse Ox O2 Delivery O2 Flow Rate FiO2 06/16/18 01:58 89 20 158/83 (108) 98 06/16/18 00:33 98.1 Room Air Lab Results Laboratory Tests Test 06/16/18 01:20 White Blood Count 7.7 x10^3/uL (4.0-11.0) Red Blood Count 3.98 x10^6/uL (3.50-5.40) Hemoglobin 11.9 g/dL (12.0-15.5) L Hematocrit 35.2 % (36.0-47.0) L Mean Corpuscular Volume 88 fL (79-100) Mean Corpuscular Hemoglobin 30 pg (25-35) Mean Corpuscular Hemoglobin Concent 34 g/dL (31-37) Red Cell Distribution Width 13.2 % (11.5-14.5) Platelet Count 266 x10^3/uL (140-400) Neutrophils (%) (Auto) 77 % (31-73) H Lymphocytes (%) (Auto) 12 % (24-48) L Monocytes (%) (Auto) 11 % (0-9) H Eosinophils (%) (Auto) 0 % (0-3) Basophils (%) (Auto) 0 % (0-3) Neutrophils # (Auto) 5.9 x10^3uL (1.8-7.7) Lymphocytes # (Auto) 0.9 x10^3/uL (1.0-4.8) L Monocytes # (Auto) 0.8 x10^3/uL (0.0-1.1) Eosinophils # (Auto) 0.0 x10^3/uL (0.0-0.7) Basophils # (Auto) 0.0 x10^3/uL (0.0-0.2) Erythrocyte Sedimentation Rate 111 (0-25) H Prothrombin Time 10.4 SEC (9.4-11.4) Prothrombin Time INR 1.0 (0.9-1.1) PTT 34 SEC (23-33) H D-Dimer (Verena) 2.13 mg/L (0.00-0.50) H Sodium Level 135 mmol/L (136-145) L Potassium Level 3.7 mmol/L (3.5-5.1) Chloride Level 95 mmol/L (98-107) L Carbon Dioxide Level 27 mmol/L (21-32) Anion Gap 13 (6-14) Blood Urea Nitrogen 14 mg/dL (7-20) Creatinine 1.6 mg/dL (0.6-1.0) H Estimated GFR (Cockcroft-Gault) 37.2 Glucose Level 203 mg/dL (70-99) H Calcium Level 9.1 mg/dL (8.5-10.1) Magnesium Level 2.1 mg/dL (1.8-2.4) Total Bilirubin 0.5 mg/dL (0.2-1.0) Direct Bilirubin 0.2 mg/dL (0.0-0.2) Aspartate Amino Transferase (AST) 17 U/L (15-37) Alanine Aminotransferase (ALT) 10 U/L (14-59) L Alkaline Phosphatase 128 U/L (46-116) H Creatine Kinase 241 U/L (26-192) H Troponin I Quantitative < 0.017 ng/mL (0-0.055) LJ-Ufk-L-Type Natriuretic Peptide 769 pg/mL (0-449) H Total Protein 7.2 g/dL (6.4-8.2) Albumin 3.0 g/dL (3.4-5.0) L Lipase 86 U/L (73-393) Influenza Type A (Rapid) Negative (NEGATIVE) Influenza Type B (Rapid) Negative (NEGATIVE) EKG EKG EKG shows a sinus rhythm at 92 bpm. Does have bimodal P-wave's. Left axis. No finding to acute STEMI of contralateral changes.[] Radiology/Procedures Radiology/Procedures My interpretation chest x-ray shows no acute cardiopulmonary findings.[] Interpretation CT of head shows no shift, mass, edema, bleed, or fracture. No acute significant interval change. Course & Med Decision Making Course & Med Decision Making Pertinent Labs and Imaging studies reviewed. (See chart for details) Suspect this is a viral syndrome or a rheumatological/inflammatory exacerbation due high ESR. History of previous episode that responded to steroids. Will admit to Dr. Pedroza for further evaluation and treatment. Final Impression Final Impression 1. Weakness- Generalized 2. Myalgia, Cephalgia and Arthralgia 3. DM 203 4. Elevated Creat. 1.6 5. Elevated ESR 111 6. Malnutrition Alb. 3.0 7. Elevated D-dimer 2.13- on anticoagulation Eliquis 8. Elevated Ck 241 9. Elevated Alk Phos. 10. Anemia Hgb11.9 Dragon Disclaimer Dragon Disclaimer This electronic medical record was generated, in whole or in part, using a voice recognition dictation system. Discharge Summary Visit Information Final Diagnosis Problems Medical Problems: (1) Weakness Status: Acute Brief Hospital Course Allergies Allergies Coded Allergies Type Severity Reaction Last Updated Verified pregabalin Allergy Severe Anaphylaxis 05/02/17 Yes bacitracin Allergy Intermediate Hives 05/02/17 Yes neomycin Allergy Intermediate Hives 05/02/17 Yes polymyxin B Allergy Intermediate Hives 05/02/17 Yes Sulfa (Sulfonamide Antibiotics) Allergy Mild Hives 05/02/17 Yes erythromycin base Allergy Mild Hives 05/02/17 Yes diazepam Allergy Unknown 06/12/18 Yes ether Allergy Unknown 06/12/18 Yes Vital Signs Vital Signs Date Time Temp Pulse Resp B/P (MAP) Pulse Ox O2 Delivery O2 Flow Rate FiO2 06/16/18 04:41 98.2 90 20 157/76 (103) 97 Room Air Lab Results Laboratory Tests Test 06/16/18 00:05 06/16/18 01:20 C-Reactive Protein 240.5 mg/L (0-3.3) White Blood Count 7.7 x10^3/uL (4.0-11.0) Red Blood Count 3.98 x10^6/uL (3.50-5.40) Hemoglobin 11.9 g/dL (12.0-15.5) Hematocrit 35.2 % (36.0-47.0) Mean Corpuscular Volume 88 fL (79-100) Mean Corpuscular Hemoglobin 30 pg (25-35) Mean Corpuscular Hemoglobin Concent 34 g/dL (31-37) Red Cell Distribution Width 13.2 % (11.5-14.5) Platelet Count 266 x10^3/uL (140-400) Neutrophils (%) (Auto) 77 % (31-73) Lymphocytes (%) (Auto) 12 % (24-48) Monocytes (%) (Auto) 11 % (0-9) Eosinophils (%) (Auto) 0 % (0-3) Basophils (%) (Auto) 0 % (0-3) Neutrophils # (Auto) 5.9 x10^3uL (1.8-7.7) Lymphocytes # (Auto) 0.9 x10^3/uL (1.0-4.8) Monocytes # (Auto) 0.8 x10^3/uL (0.0-1.1) Eosinophils # (Auto) 0.0 x10^3/uL (0.0-0.7) Basophils # (Auto) 0.0 x10^3/uL (0.0-0.2) Erythrocyte Sedimentation Rate 111 (0-25) Prothrombin Time 10.4 SEC (9.4-11.4) Prothromb Time International Ratio 1.0 (0.9-1.1) Activated Partial Thromboplast Time 34 SEC (23-33) D-Dimer (Verena) 2.13 mg/L (0.00-0.50) Sodium Level 135 mmol/L (136-145) Potassium Level 3.7 mmol/L (3.5-5.1) Chloride Level 95 mmol/L (98-107) Carbon Dioxide Level 27 mmol/L (21-32) Anion Gap 13 (6-14) Blood Urea Nitrogen 14 mg/dL (7-20) Creatinine 1.6 mg/dL (0.6-1.0) Estimated GFR (Cockcroft-Gault) 37.2 Glucose Level 203 mg/dL (70-99) Calcium Level 9.1 mg/dL (8.5-10.1) Magnesium Level 2.1 mg/dL (1.8-2.4) Total Bilirubin 0.5 mg/dL (0.2-1.0) Direct Bilirubin 0.2 mg/dL (0.0-0.2) Aspartate Amino Transf (AST/SGOT) 17 U/L (15-37) Alanine Aminotransferase (ALT/SGPT) 10 U/L (14-59) Alkaline Phosphatase 128 U/L (46-116) Creatine Kinase 241 U/L (26-192) Troponin I Quantitative < 0.017 ng/mL (0-0.055) LV-Mfh-D-Type Natriuretic Peptide 769 pg/mL (0-449) Total Protein 7.2 g/dL (6.4-8.2) Albumin 3.0 g/dL (3.4-5.0) Lipase 86 U/L (73-393) Influenza Type A (Rapid) Negative (NEGATIVE) Influenza Type B (Rapid) Negative (NEGATIVE) Brief Hospital Course Ms. Rome is a 82 old female who presented with increased generalized weakness, cephalalgia, arthralgia, myalgia and malaise.. Minute to Dr. Tate with neurology consult. Discharge Information Condition at Discharge: Improved, Stable Dischare Medications Current Medications Sodium Chloride 1,000 ml @ 100 mls/hr Q10H IV Last administered on 06/16/18at 01:56; Start 06/16/18 at 00:30; Stop 06/16/18 at 10:29 Ondansetron HCl (Zofran Odt) 8 mg 1X ONCE PO Last administered on 06/16/18at 01 :55; Start 06/16/18 at 00:30; Stop 06/16/18 at 01:29; Status DC Methylprednisolone Sodium Succinate (SOLU-Medrol 125MG VIAL) 125 mg 1X ONCE IV Last administered on 06/16/18at 03:30; Start 06/16/18 at 03:30; Stop 06/16/18 at 03:32; Status DC Ondansetron HCl (Zofran) 4 mg PRN Q4HRS PRN IV NAUSEA/VOMITING; Start 06/16/18 at 03:30; Stop 06/17/18 at 03:29 Acetaminophen (Tylenol) 650 mg PRN Q4HRS PRN PO FEVER; Start 06/16/18 at 03:30 ; Stop 06/17/18 at 03:29 Albuterol/ Ipratropium (Duoneb) 3 ml RTQID NEB ; Start 06/16/18 at 08:00; Stop 06/17/18 at 07:59 Active Scripts Active Orphenadrine Citrate 100 Mg Tablet.er 1 Tab PO BID PRN Tylenol With Codeine #3 Tablet (Acetaminophen With Codeine) 1 Each Tablet 1 Tab PO Q6HRS PRN Prednisone 10 Mg Tablet 10 Mg PO DAILY 30 Days start with 6 tablets a day and then reduce by a 1/2 tablets every third day stay o n 1/2 tablet. Eliquis (Apixaban) 2.5 Mg Tablet 2.5 Mg PO BID 30 Days Reported Wgosn-Hmhtk-Alrr 10-160-12.5MG (Amlodipine/Valsartan/Hcthiazid) 1 Each Tablet 1 Tab PO DAILY Synthroid (Levothyroxine Sodium) 100 Mcg Tablet 50 Mcg PO DAILY06 Levemir (Insulin Detemir) 100 Unit/1 Ml Vial 20 Unit SQ HS Cyclobenzaprine Hcl 5 Mg Tablet 1 Tab PO TID Lasix (Furosemide) 20 Mg Tablet 1 Tab PO DAILY Ranitidine Hcl 150 Mg Tablet 1 Tab PO BID Aspirin 325 Mg Tablet 1 Tab PO DAILY Potassium Chloride 20 Meq Tablet.er 20 Meq PO DAILY Gabapentin (Gabapentin) 100 Mg Capsule 100 Mg PO BID Leela Disclaimer This chart was dictated in whole or in part using Voice Recognition software in a busy, high-work load, and often noisy Emergency Department environment. It may contain unintended and wholly unrecognized errors or omissions. EMANUEL TAM MD Jun 15, 2018 23:59
[2018-06-16] MEDS ORDERED: ONDANSETRON ODT 4 MG TAB.RAPDIS PO ONE (00:30)
[2018-06-16] MEDS ORDERED: IV NORMAL SALINE 1,000ML 1,000 ML IV SCH (00:30)
[2018-06-16 01:43] LABS: BASO % 0 % (0-3); EOS % 0 % (0-3); HEMATOCRIT 35.2 % (36.0-47.0); HEMOGLOBIN 11.9 g/dL (12.0-15.5); LYMPH # 0.9 x10^3/uL (1.0-4.8); LYMPH % 12 % (24-48); MEAN CORPUSCULAR HEMOGLOBIN 30 pg (25-35); MEAN CORPUSCULAR HGB CONC 34 g/dL (31-37); MEAN CORPUSCULAR VOLUME 88 fL (79-100); MONO # 0.8 x10^3/uL (0.0-1.1); MONO % 11 % (0-9); NEUT # 5.9 x10^3uL (1.8-7.7); NEUT % 77 % (31-73); PLATELET COUNT 266 x10^3/uL (140-400); RED BLOOD COUNT 3.98 x10^6/uL (3.50-5.40); RED CELL DISTRIBUTION WIDTH 13.2 % (11.5-14.5); WHITE BLOOD COUNT 7.7 x10^3/uL (4.0-11.0)
[2018-06-16 02:00] LABS: CALCIUM 9.1 mg/dL (8.5-10.1); CREATININE 1.6 mg/dL (0.6-1.0); DIRECT BILIRUBIN 0.2 mg/dL (0.0-0.2); GFR 37.2; MAGNESIUM 2.1 mg/dL (1.8-2.4); POTASSIUM 3.7 mmol/L (3.5-5.1); TOTAL BILIRUBIN 0.5 mg/dL (0.2-1.0); TOTAL PROTEIN 7.2 g/dL (6.4-8.2)
--- NOTE | 2018-06-16 02:14 | EKG ---
[address] [address] Test Date: 2018-06-16 Test Time: 02:08:28 Pat Name: ANGELINA BRUNNER Department: Room: Gender: F Inspector Packer: CHUCK : [id number] Requested By: EMANUEL TAM Order Number: [id number] Reading MD: Luis Alberto Rogers Measurements Intervals [place] Rate: 92 P: -43 TX: 164 QRS: -9 QRSD: 82 T: 57 QT: 378 QTc: 473 Interpretive Statements SUPRAVENTRICULAR RHYTHM LEFT ATRIAL ABNORMALITY LEFTWARD AXIS Electronically Signed On 06-18-2018 10:54:50 [employer] [employer] by Luis Alberto Rogers
[2018-06-16 02:17] LABS: INFLUENZA A PATIENT NEGATIVE (NEGATIVE); INFLUENZA B PATIENT NEGATIVE (NEGATIVE)
[2018-06-16 02:46] LABS: SEDIMENTATION RATE 111 (0-25)
[2018-06-16] MEDS ORDERED: ACETAMINOPHEN 325 MG TABLET PO PRN (03:30)
[2018-06-16] MEDS ORDERED: methylPREDNISolone SOD SUCC PF 125 MG/2 ML VIAL. IV ONE (03:30)
[2018-06-16] MEDS ORDERED: ONDANSETRON PF 4 MG/2 ML VIAL. IV PRN (03:30)
--- NOTE | 2018-06-16 04:04 | RAD ---
INDICATION: Head and neck pain COMPARISON: June 12, 2018 TECHNIQUE: Axial CT images obtained through the head and cervical spine. One or more of the following individualized dose reduction techniques were utilized for this examination: 1. Automated exposure control; 2. Adjustment of the mA and/or kV according to patient size; 3. Use of iterative reconstruction technique. FINDINGS: Head: No midline shift. Suprasellar cistern is not effaced. Calcifications of the falx anteriorly. Basal ganglia calcifications. Low-density is seen throughout the white matter. Prominence of ventricles and sulci which can be seen with age-related volume loss. No definite acute intracranial hemorrhage. Cervical spine: Degenerative changes throughout the cervical spine with disc protrusions and osteophyte formation as well as uncovertebral and facet hypertrophy contributing to multilevel central canal and neural foraminal stenosis. Pannus at C2 narrowing the central canal. Grade 1 anterolisthesis of C2 on 3 and C7 on T1. Mild retrolisthesis at C5 on 6 and C6 on 7. No definite acute fracture IMPRESSION: 1. No acute intracranial hemorrhage. 2. Scattered foci of low density of white matter. Nonspecific but can be seen with chronic small vessel ischemic disease. 3. Degenerative changes throughout the cervical spine with multilevel central canal and neural foraminal stenosis. 4. There is slight thickening of the prevertebral soft tissues at the level of C1 and C2. Could be secondary to pannus formation within the region exerting mass effect on the area although some other possible causes would include adenoid hyperplasia or inflammation of adenoid.. Electronically signed by: Temo Rome MD (06/16/2018 4:01 AM) [facility]
[2018-06-16 04:41] VITALS: BP 157/76
[2018-06-16] MEDS: IPRATRPIUM/ALBUTEROL 0.5/2.5MG 3 ML NEBU. NEB SCH ×2 (06:15→10:22)
[2018-06-16] MEDS ORDERED: INSU100C4 SQ (06:39)
--- NOTE | 2018-06-16 08:15 | NUR ---
The patient, ANGELINA BRUNNER, 82 y/o, F admitted by MARS OBRIEN MD, was given written information regarding hospital policies, unit procedures and contact persons. Valuables were checked and noted. PT safely transferred to bed, assessment completed, medications reconciled.
--- NOTE | 2018-06-16 08:28 | RAD ---
CHEST PA LATERAL CLINICAL INDICATION: Wheezing, hypertension COMPARISON: None FINDINGS: Heart is normal in size. Mild prominence of bilateral bronchovascular markings. No focal consolidation. No pneumothorax or pleural effusion. Visualized bony thorax is within normal limits. IMPRESSION: Findings of mild bronchitis. Electronically signed by: Zay Lemus DO (06/16/2018 8:25 AM) [facility]
[2018-06-16 08:53] LABS: AMPHETAMINE/METHAMPHETAMINE NEG (NEG); BARBITURATES NEG (NEG); BENZODIAZEPINES NEG (NEG); CANNABINOIDS NEG (NEG); COCAINE NEG (NEG); METHADONE NEG (NEG); OPIATES POS (NEG); PHENCYCLIDINE NEG (NEG)
[2018-06-16 08:56] LABS: BACTERIA,URINE FEW /HPF (0-FEW); BILIRUBIN,URINE NEG (NEG); CLARITY,URINE HAZY; COLOR,URINE AMBER; GLUCOSE,URINE NEG (NEG); GRANULAR CASTS,URINE OCC /HPF; HYALINE CASTS, URINE OCC /HPF; NITRITE,URINE NEG (NEG); RBC,URINE RARE /HPF (0-2); SQUAMOUS EPITHELIAL CELL,UR FEW /LPF; UROBILINOGEN,URINE 0.2 mg/dL (0.2 mg/dL)
[2018-06-16 09:59] VITALS: BP 155/73
[2018-06-16] MEDS ORDERED: FUROSEMIDE 20 MG TABLET PO PRN (10:15)
[2018-06-16] MEDS ORDERED: ACETAMINOPHEN/CODEINE 300/30MG TABLET PO PRN (10:30)
[2018-06-16] MEDS ORDERED: ORPHENADRINE ER 100 MG TABLET.ER PO PRN (10:30)
[2018-06-16] MEDS ORDERED: IPRATRPIUM/ALBUTEROL 0.5/2.5MG 3 ML NEBU. NEB PRN (10:30)
[2018-06-16] MEDS: APIXABAN 2.5 MG TABLET PO SCH ×2 (10:35→21:50)
[2018-06-16] MEDS: LEVOTHYROXINE 50 MCG TABLET PO SCH (10:38)
[2018-06-16] MEDS: GABAPENTIN 100 MG CAPSULE. PO SCH ×2 (10:38→21:50)
[2018-06-16] MEDS: hydroCHLOROthiazide 12.5 MG CAPSULE PO SCH (10:39)
[2018-06-16] MEDS: amLODIPine BESYLATE 10 MG TABLET PO SCH (10:39)
[2018-06-16] MEDS: LOSARTAN 50 MG TABLET. PO SCH (10:39)
[2018-06-16] MEDS: FAMOTIDINE 20 MG TABLET PO SCH ×2 (10:40→21:50)
[2018-06-16] MEDS: predniSONE 10 MG TABLET PO SCH (10:40)
[2018-06-16] MEDS: POTASSIUM CHLORIDE 20 MEQ TABLET.ER. PO SCH (10:41)
[2018-06-16] MEDS ORDERED: DEXTROSE 50% 25 GM / 50ML DISP.SYRIN. IV PRN (10:45)
--- NOTE | 2018-06-16 10:57 | CONS ---
DATE OF CONSULTATION: 06/16/2018 NEUROLOGY CONSULTATION REFERRING PHYSICIAN: Dr. Tate. REASON FOR CONSULTATION: Severe neck pain, lower back pain, and generalized joint pain. HISTORY OF PRESENT ILLNESS: This is an 82-year-old right-handed -[place] female who was admitted through Emergency Room after she presented with 7-10 day history of severe neck pain radiating to the shoulder blades and associated with numbness and paresthesia of the upper extremities. The patient stated her neck pain is worsened by turning the neck to any directions. She also complains of chronic lower back pain radiating to the lower extremities and associated with numbness and paresthesia. The patient is known with a history of breast cancer. She has been followed by oncologist in [place] and she was told that her cancer marker has decreased from mid 60s to mid 40s. The patient denies headaches, visual disturbances, nausea, vomiting, chest pain, shortness of breath or palpitation, dysarthria, dysphagia or vertigo. She denies any recent head injuries or fall. She denies weakness of the lower extremities, bowel or bladder dysfunctions. PAST MEDICAL HISTORY: Significant for left breast cancer, required a lumpectomy in 2006 and left radical mastectomy in 2016 preceded by radiation and chemotherapy, multiple medical problems including diabetes mellitus, hypertension, hyperlipidemia, hypothyroidism, status post thyroid cancer, required surgery, renal disease, history of generalized arthralgia, cataracts, peripheral neuropathy in the lower extremities, GERD, blood clots in the neck area from the port. PAST SURGICAL HISTORY: Cataract removal, thyroidectomy, left radical mastectomy that I just mentioned, carpal tunnel syndrome. SOCIAL HISTORY: The patient lives with her daughter. She quit smoking in 1988. She used to be a heavy smoker. She denies alcohol drinking or illicit drug use. FAMILY HISTORY: Positive for diabetes mellitus and cancer. REVIEW OF SYSTEMS: A 10-point review of system was performed as mentioned above in the history of present illness. ALLERGIES: SULFA DRUGS, BACITRACIN, DIAZEPAM, ERYTHROMYCIN BASE, NEOMYCIN, POLYMYXIN B, and PREGABALIN-LYRICA. CURRENT HOME MEDICATIONS: Tylenol, amlodipine, Eliquis, furosemide, gabapentin 100 mg b.i.d., furosemide 20 mg daily, Eliquis 2.5 mg b.i.d., insulin NovoLog and insulin Levemir, levothyroxine, potassium, prednisone 10 mg daily, ranitidine 150 mg daily, albuterol inhaler. PHYSICAL EXAMINATION: GENERAL: Well-developed, well-nourished female, not in acute distress. She weighs 173 pounds. VITAL SIGNS: Blood pressure 157/76, respiratory rate 20, pulse is 90, temperature is 98.2, oxygen saturation is 97% on room air. HEENT: Normocephalic, atraumatic, otherwise unremarkable. NECK: Supple. Negative for carotid bruit, lymphadenopathy or thyromegaly. LUNGS: Clear to A and P. CARDIOVASCULAR: Regular rate and rhythm, normal S1, S2. There is no S3, S4 or murmur. ABDOMEN: Soft. Bowel sounds positive. EXTREMITIES: Negative for cyanosis, clubbing or pitting edema. NEUROLOGIC: Mental Status: The patient is alert and oriented x 3. The speech is fluent. There is no language dysfunction. Memory, judgment, and abstracting thinking are normal. The patient denies hallucination or delusion. Cranial Nerves: Visual mcmillan are full. The pupils are reactive to light and accommodation. The extraocular movements are intact. There is no nystagmus. There is no facial motor or sensory deficit. Hearing is intact bilaterally. The palate is elevated symmetrically. Sternocleidomastoid muscles are powerful bilaterally. The patient shrugs her shoulders symmetrically, protrudes her tongue in the midline without fasciculation or atrophy. Motor: No focal muscle bulk was seen. The tone is normal. The strength is 5/5 throughout. Sensory examination revealed diminished pinprick and light touch senses in patchy distributions in distal lower extremities. Deep tendon reflexes were symmetric with absent Achilles responses. Gait and stance is steady. DIAGNOSTIC DATA: Chest x-ray revealed mild bronchitis. Head CT scan revealed no acute intracranial hemorrhage, but showed chronic small vessel ischemic changes. A CT of the cervical spine revealed degenerative disk disease at level C1-C2 and multiple level spinal canal and foraminal stenoses. LABORATORY DATA: CBC revealed white blood cells of 7.7, hemoglobin 11.9, hematocrit 35.2, platelet count 266,000. Chemistry revealed sodium of 135, potassium 3.7, chloride 95, CO2 27, BUN 14, creatinine 1.6, glucose 203, calcium 9.3. Creatinine kinase is elevated at 241 with elevated alkaline phosphatase at 128, normal troponin level with CRP elevation at 240.5 and elevated BNP with hypoalbuminemia. Urinary tract infection is positive for white blood cells of 5-10 and trace urinary leukocyte esterase. Urine drug screen is negative. Coagulation, elevated D-dimer at 2.13. IMPRESSION: 1. Exacerbation of cervical radiculopathy, likely due to underlying multilevel degenerative disk disease and spinal canal and foraminal stenoses. 2. Chronic lower back pain, probably due to underlying degenerative disk disease of the lumbar spine. 3. Multiple medical problems to include hypertension, hyperlipidemia, diabetes mellitus, hypothyroidism, gastroesophageal reflux disease. 4. History of clotting disorder. RECOMMENDATION: 1. Continue with current management for neck pain and cervical radiculopathy. 2. Analgesic and muscle relaxant. 3. Treat the underlying urinary tract infections. We will arrange for EMG/NCS of the upper and lower extremities on an outpatient basis. M Julia COWART MD DR: NELSY/andry JOB#: [id number] / [id number]
[2018-06-16 11:14] VITALS: BP 182/69
[2018-06-16] MEDS ORDERED: INSULIN LISPRO 300 UNITS/3 ML INSULN.PEN. SQ SCH (11:30)
[2018-06-16] MEDS: INSULIN LISPRO 300 UNITS/3 ML INSULN.PEN. SQ SCH ×2 (12:02→17:15)
[2018-06-16 15:27] VITALS: BP 127/66
[2018-06-16] MEDS ORDERED: INSULIN LISPRO 300 UNITS/3 ML INSULN.PEN. SQ STA (16:43)
[2018-06-16 19:25] VITALS: BP 121/70
[2018-06-16] MEDS ORDERED: INSULIN GLARGINE 300 UNITS/3 ML INSULN.PEN. SQ SCH (21:00)
[2018-06-16 23:09] VITALS: BP 153/84
[2018-06-17 04:03] VITALS: BP 122/62
[2018-06-17] MEDS: LEVOTHYROXINE 50 MCG TABLET PO SCH (06:11)
[2018-06-17 06:39] VITALS: BP 129/72
[2018-06-17] MEDS: hydroCHLOROthiazide 12.5 MG CAPSULE PO SCH (08:31)
[2018-06-17] MEDS: GABAPENTIN 100 MG CAPSULE. PO SCH (08:31)
[2018-06-17] MEDS: amLODIPine BESYLATE 10 MG TABLET PO SCH (08:31)
[2018-06-17] MEDS: INSULIN LISPRO 300 UNITS/3 ML INSULN.PEN. SQ SCH (08:31)
[2018-06-17 08:32] VITALS: BP 129/72
[2018-06-17] MEDS: LOSARTAN 50 MG TABLET. PO SCH (08:32)
[2018-06-17] MEDS: APIXABAN 2.5 MG TABLET PO SCH (08:32)
[2018-06-17] MEDS: POTASSIUM CHLORIDE 20 MEQ TABLET.ER. PO SCH (08:32)
[2018-06-17] MEDS: FAMOTIDINE 20 MG TABLET PO SCH (08:32)
[2018-06-17] MEDS: predniSONE 10 MG TABLET PO SCH (08:32)
[2018-06-17] MEDS ORDERED: [UNRECOGNIZED DRUG - OTHER] PO SCH (09:00)
[2018-06-17] MEDS ORDERED: VALSARTAN PO SCH (09:00)
[2018-06-17] MEDS ORDERED: AMLODIPINE PO SCH (09:00)
[2018-06-17] MEDS ORDERED: HCTHIAZID PO SCH (09:00)
--- NOTE | 2018-06-17 09:55 | NUR ---
Pt discharged from hospital. IV d/c'd, instructions provided to pt, verbalized understanding. 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
--- NOTE | 2018-06-17 10:59 | NUR ---
pt off the unit accompanied by radha dunbar.
--- NOTE | 2018-06-17 11:19 | DS ---
DATE OF DISCHARGE: 06/17/2018 HOSPITAL COURSE: An 82-year-old female in with severe neck and upper back pain. The patient had severe pain, unable to move. The patient's sed rate was over 110. The patient was given steroids as well as some muscle relaxers. The patient had a previous scan of her lungs with positive D-dimer, which was negative. The patient otherwise made good progress during the rest of her hospitalization and she was discharged home. The patient had polymyalgia rheumatica. She will be kept on a tapering dose of steroids. See MRAD. Decreased activity. The patient's labs otherwise course of elevated blood sugar consistent with her history of diabetes. IMPRESSION: Therefore, polymyalgia rheumatica syndrome, severe intractable pain, type 2 diabetes, obesity, hypertension essential. The patient will be discharged home. Follow up as an outpatient. The patient made good progress while in the hospital, no complications. See MRAD. Decreased activity. Diabetic diet. Diagnosed polymyalgia rheumatica, obesity, hypertension, type 2 diabetes. MARS OBRIEN MD DR: JONO/andry JOB#: [id number] / [id number]
--- NOTE | 2018-06-17 12:01 | PN ---
DATE: 06/17/2018 SUBJECTIVE: The patient denies any new medical complaints. She continues to have mild neck pain, especially when she turns her neck to any directions. Occasionally, she complains of numbness and tingling of the hands. She also complains of lower back pain. OBJECTIVE: GENERAL: Well-developed, well-nourished female, in no acute distress. VITAL SIGNS: Blood pressure 129/72, respiratory rate is 16, pulse is 76, temperature is 98.2, and oxygen saturation is 97% on room air. HEENT: Normocephalic, atraumatic, otherwise unremarkable. NECK: Supple, negative for carotid bruits, lymphadenopathy, or thyromegaly. LUNGS: Clear to A and P. CARDIOVASCULAR: Regular rate and rhythm. Normal S1, S2. There is no S3, S4 or murmur. ABDOMEN: Soft. Bowel sounds positive. EXTREMITIES: Negative for cyanosis, clubbing, edema. NEUROLOGIC: Normal mental status and intact cranial nerves. There is no focal motor or sensory deficit. Deep tendon reflexes were symmetric with absent Achilles responses bilaterally. Gait and coordination are normal. IMPRESSION: 1. Exacerbation of her cervical radiculopathy, likely due to underlying degenerative disk disease. 2. Chronic low back pain due to underlying degenerative disk disease. 3. Multiple medical problems include hypertension, hyperlipidemia, diabetes mellitus, hypothyroidism, acute gastroesophageal reflux disease and history of clotting disorder, rule out peripheral neuropathy in the lower extremity versus radiculopathy. RECOMMENDATIONS: 1. Continue with current management initiated by Dr. Tate. The patient benefit from muscle relaxant and analgesic. 2. We will arrange for EMG/NCS of upper and lower extremities. MARS TATE MD DR: JONO/andry JOB#: [id number] / [id number]
--- NOTE | 2018-06-27 12:19 | HP ---
ADMIT DATE: 06/16/2018 HISTORY OF PRESENT ILLNESS: An 82-year-old female came in through the Emergency Room. She was extremely weak, in severe pain, severe malaise, myalgias, arthralgias, cephalgia, generalized weakness. The patient was unable to get any type of relief as an outpatient. The patient was admitted to the hospital for further evaluation of her general deconditioning and weakness and the severity of her pain. The patient's past medical history includes that of thyroidectomy, neuropathy, shortness of breath, cataract surgery. She has had a history of breast cancer, LEEP procedure, arthritis, chronic back pain, type 2 diabetes, hypothyroidism. She has had cancer as noted of the breast. She had blood clots of the neck from a port. Her immunizations for diphtheria tetanus, influenza, pneumococcal are all up to date. She has had previous port placements. The patient also has history of renal disease. She has undergone chemotherapy and radiation therapy. She has been treated for thyroid cancer with surgery, subclavian thrombosis, hypothyroidism, degenerative arthritis, chronic renal insufficiency, and gastritis. MEDICATIONS: Reconciled and noted including Eliquis 2.5 mg b.i.d., amlodipine, valsartan, hydrochlorothiazide 10/160/12.5 daily, gabapentin 100 mg b.i.d., potassium, furosemide, Zantac 150 mg b.i.d., prednisone 10, insulin NovoLog, Levemir, and Synthroid 50 mcg. ALLERGIES: SULFA, BACITRACIN, DIAZEPAM, ERYTHROMYCIN BASE, NEOMYCIN, POLYMYXIN B, AND PREGABALIN. FAMILY HISTORY: Noncontributory. SOCIAL HISTORY: No history of smoking, alcohol, or drug use. The patient is a full code. REVIEW OF SYSTEMS: Denies any outside of her extreme pain in her neck, upper back, and head area and generalized weakness. The patient denies any melena, hematochezia, or hematemesis with neurologically stable in that regard. PHYSICAL EXAMINATION: GENERAL: The patient otherwise on exam is a pleasant white female in severe pain of 9/10. VITAL SIGNS: Her blood pressure was , respiratory rate 20, pulse 97, afebrile. HEENT: The patient's head was atraumatic, normocephalic. Eyes: PERRLA without jaundice. Mouth and throat were normal. NECK: Supple, no JVD or thyromegaly. LUNGS: Diminished, but clear. The patient had marked tenderness to the neck and upper back area. CARDIOVASCULAR: Regular sinus rhythm. ABDOMEN: Soft, nontender, no rebound or guarding. Positive bowel sounds, no hepatosplenomegaly was noted. EXTREMITIES: No clubbing, cyanosis, or edema. NEUROLOGIC: The patient is alert and oriented x 3. Speech fluent, spontaneous, appropriate. Cranial nerves 2-12 grossly intact. LABORATORY DATA: The patient's lab showed a slight decrease in her hemoglobin, but most importantly, her sed rate was approximately 110. Sugars were also elevated, as noted, the patient was on Eliquis. The patient had cyclic citrullinated peptide IgG which was only 11, which was within normal range. UA showed no growth in her culture. The patient was admitted for further evaluation and treatment. 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 PLAN: The patient will be admitted for further evaluation, probably placed on IV steroids, make further evaluation on her polymyalgia rheumatica and make further assessment as indicated. MARS OBRIEN MD DR: JONO/andry JOB#: [id number] / [id number]
== END 2018-06-17 10:59 | disposition home or self-care (01) | DRG 546 ==
LOC: ER 23:45 → 1 SOUTH 06-16 03:00 → ER 06-16 04:06
PROVIDERS: ADMIT Family Medicine; ATTEND Family Medicine
DX: M35.3 Polymyalgia rheumatica (principal); E44.0 Moderate protein-calorie malnutrition; M54.12 Radiculopathy, cervical region; E66.9 Obesity, unspecified; E78.5 Hyperlipidemia, unspecified; E89.0 Postprocedural hypothyroidism; G89.29 Other chronic pain; I10 Essential (primary) hypertension; K21.9 Gastro-esophageal reflux disease without esophagitis; M51.36 Other intervertebral disc degeneration, lumbar region; Z83.3 Family history of diabetes mellitus; Z85.3 Personal history of malignant neoplasm of breast; Z85.850 Personal history of malignant neoplasm of thyroid; Z90.10 Acquired absence of unspecified breast and nipple; Z87.891 Personal history of nicotine dependence; M19.90 Unspecified osteoarthritis, unspecified site; Z88.2 Allergy status to sulfonamides; Z88.8 Allergy status to other drugs, medicaments and biological substances; Z68.32 Body mass index [BMI] 32.0-32.9, adult
CPT/HCPCS: 36415; 70450; 71046; 72125; 80048; 80076; 80307; 81001; 82550; 82947; 83690; 83735; 83880; 84443; 84484; 85025; 85379; 85610; 85651; 85730; 86140; 86200; 87086; 87804; 93005; 96361; 96374; J1815; J2930; J7512; Q0162; 99285-25; J7030

== ENCOUNTER 2018-07-12 18:46 | Emergency (ER) | payer MEDICARE, OTHER ==
[~2018-07-12] VITALS: Ht 154.9 cm; Wt 76.8 kg
[~2018-07-12 18:46] MED LIST changes: +INSU100C4 SQ
--- NOTE | 2018-07-12 19:28 | ED.ADGEN ---
Past History Past Medical History: Arthritis, Cancer, Diabetes, Hypertension, Hypothyroid, Renal Disease Past Surgical History: Cancer Surgery Alcohol Use: None Drug Use: None Adult General Chief Complaint Chief Complaint left wrist pain HPI HPI 82 years old female presented emergency department with left breast swelling and tenderness no trauma she is able to move it in all direction symptoms started today does not recall any trauma no fever no chills no restriction of movement Review of Systems Review of Systems Constitutional: Denies fever or chills [] Eyes: Denies change in visual acuity, redness, or eye pain [] HENT: Denies nasal congestion or sore throat [] Respiratory: Denies cough or shortness of breath [] Cardiovascular: No additional information not addressed in HPI [] GI: Denies abdominal pain, nausea, vomiting, bloody stools or diarrhea [] : Denies dysuria or hematuria [] Allergies Allergies Allergies Coded Allergies Type Severity Reaction Last Updated Verified pregabalin Allergy Severe Anaphylaxis 05/02/17 Yes bacitracin Allergy Intermediate Hives 05/02/17 Yes neomycin Allergy Intermediate Hives 05/02/17 Yes polymyxin B Allergy Intermediate Hives 05/02/17 Yes Sulfa (Sulfonamide Antibiotics) Allergy Mild Hives 05/02/17 Yes erythromycin base Allergy Mild Hives 05/02/17 Yes diazepam Allergy Unknown 06/12/18 Yes ether Allergy Unknown 06/12/18 Yes Physical Exam Physical Exam Constitutional: Well developed, well nourished, no acute distress, non-toxic appearance. [] HENT: Normocephalic, atraumatic, bilateral external ears normal, oropharynx moist, no oral exudates, nose normal. [] Eyes: PERRLA, EOMI, conjunctiva normal, no discharge. [] Neck: Normal range of motion, no tenderness, supple, no stridor. [] Cardiovascular:Heart rate regular rhythm, no murmur [] Lungs & Thorax: Bilateral breath sounds clear to auscultation [] Abdomen: Bowel sounds normal, soft, no tenderness, no masses, no pulsatile masses. [] Skin: Warm, dry, no erythema, no rash. [] Back: No tenderness, no CVA tenderness. [] Extremities: Left wrist is swollen tender minimal. No restriction of movement EKG EKG [] Radiology/Procedures Radiology/Procedures [] Course & Med Decision Making Course & Med Decision Making Pertinent Labs and Imaging studies reviewed. (See chart for details) [] Final Impression Final Impression [] Problems: (1) Left wrist sprain Qualifiers: Qualified Codes: S63.502A - Unspecified sprain of left wrist, initial encounter Dragon Disclaimer Dragon Disclaimer This electronic medical record was generated, in whole or in part, using a voice recognition dictation system. BEVERLY MARTINEZ MD Jul 12, 2018 19:28
[2018-07-12] MEDS ORDERED: HYDR-3165 PO (19:29)
[2018-07-12] MEDS ORDERED: ACET-704 PO (19:36)
[2018-07-12 19:50] VITALS: BP 109/70
--- NOTE | 2018-07-13 08:25 | RAD ---
Indication:Left wrist sprain, injury this a.m. from grabbing heavy bag, pain TECHNIQUE: 3 views of left wrist COMPARISON: None FINDINGS: Osteopenia. 6 mm calcific density seen projecting over the dorsum of the proximal row of the carpal bones with edema in the dorsal aspect of the wrist which may represent a triquetral avulsion fracture. Advanced first CMC joint osteoarthritis. Calcification seen of the triangular fibrocartilage suggesting degenerative changes. Electronically signed by: Zay Lemus DO (07/13/2018 8:22 AM) [facility]
== END 2018-07-12 19:50 | disposition home or self-care (01) ==
LOC: ER 18:46
DX: S63.502A Unspecified sprain of left wrist, initial encounter (principal); E11.9 Type 2 diabetes mellitus without complications; I10 Essential (primary) hypertension; E03.9 Hypothyroidism, unspecified; Z88.8 Allergy status to other drugs, medicaments and biological substances; Z88.1 Allergy status to other antibiotic agents; Z88.2 Allergy status to sulfonamides; X50.9XXA Other and unspecified overexertion or strenuous movements or postures, initial encounter; Y93.89 Activity, other specified; Y92.89 Other specified places as the place of occurrence of the external cause; Y99.8 Other external cause status
CPT/HCPCS: 29125; 73110; 99283

== ENCOUNTER 2018-07-13 15:58 | Emergency (ER) | payer MEDICARE, OTHER ==
[~2018-07-13] VITALS: Ht 154.9 cm; Wt 76.8 kg
[~2018-07-13 15:58] MED LIST changes: +HYDR-3165 PO
--- NOTE | 2018-07-13 16:35 | PHYS DOC ---
Past History Past Medical History: Arthritis, Cancer, Diabetes, Hypertension, Hypothyroid, Renal Disease Past Surgical History: Cancer Surgery Alcohol Use: None Drug Use: None Adult General Chief Complaint Chief Complaint: CHEST PAIN HPI HPI 82-year-old female presents with chest pain. The patient states that she has been having some chest tightness most of the day today. She states that it is feeling like she needs to burp or vomit. It was increasing in intensity this afternoon to a moderate to severe level. She decided to come the emergency room. She did not have shortness of breath or diaphoresis. She has a history of heartburn. She has no known cardiac history. She denies fever or chills. Review of Systems Review of Systems Constitutional: Denies fever or chills [] Eyes: Denies change in visual acuity, redness, or eye pain [] HENT: Denies nasal congestion or sore throat [] Respiratory: Denies cough or shortness of breath [] Cardiovascular: No additional information not addressed in HPI [] GI: Epigastric pain. Denies nausea, vomiting, bloody stools or diarrhea [] : Denies dysuria or hematuria [] Musculoskeletal: Denies back pain or joint pain [] Integument: Denies rash or skin lesions [] Neurologic: Denies headache, focal weakness or sensory changes [] Endocrine: Denies polyuria or polydipsia [] All other systems were reviewed and found to be within normal limits, except as documented in this note. Current Medications Current Medications Current Medications Medications (Trade) Dose Ordered Sig/Tenzin Start Time Stop Time Status Last Admin Dose Admin Multi-Ingredient Mouthwash/Gargle (Gi Cocktail) 20 ml 1X ONCE 07/13/18 16:50 07/13/18 16:51 07/13/18 16:28 20 ML Allergies Allergies Allergies Coded Allergies Type Severity Reaction Last Updated Verified pregabalin Allergy Severe Anaphylaxis 05/02/17 Yes bacitracin Allergy Intermediate Hives 05/02/17 Yes neomycin Allergy Intermediate Hives 05/02/17 Yes polymyxin B Allergy Intermediate Hives 05/02/17 Yes Sulfa (Sulfonamide Antibiotics) Allergy Mild Hives 05/02/17 Yes erythromycin base Allergy Mild Hives 05/02/17 Yes diazepam Allergy Unknown 06/12/18 Yes ether Allergy Unknown 06/12/18 Yes Physical Exam Physical Exam Constitutional: Well developed, well nourished, no acute distress, non-toxic appearance. [] HENT: Normocephalic, atraumatic, bilateral external ears normal, oropharynx moist, no oral exudates, nose normal. [] Eyes: PERRLA, EOMI, conjunctiva normal, no discharge. [] Neck: Normal range of motion, no tenderness, supple, no stridor. [] Cardiovascular:Heart rate regular rhythm, grade 3/6 systolic ejection murmur[] Lungs & Thorax: Bilateral breath sounds clear to auscultation [] Abdomen: Bowel sounds normal, soft, no tenderness, no masses, no pulsatile masses. [] Skin: Warm, dry, no erythema, no rash. [] Back: No tenderness, no CVA tenderness. [] Extremities: No tenderness, no cyanosis, no clubbing, ROM intact, no edema. [] Neurologic: Alert and oriented X 3, normal motor function, normal sensory function, no focal deficits noted. [] Psychologic: Affect normal, judgement normal, mood normal. [] EKG EKG Sinus rhythm, rate 81, normal axis, no ST elevations or depressions.[] Radiology/Procedures Radiology/Procedures [] Impressions: Indication:CHEST PAIN TECHNIQUE:Portable AP chest X-ray COMPARISON:06/16/2018 FINDINGS: Heart is normal in size. Lungs are clear. No pneumothorax or effusion. Visualized bony thorax is within normal limits. IMPRESSION: No acute pulmonary process. Electronically signed by: Zay Oden DO (07/13/2018 4:48 PM) [facility] DICTATED AND SIGNED BY: ZAY ODEN DO DATE: 07/13/18 2199 CC: LILIA VOSS DO; MARS OBRIEN MD ~ Course & Med Decision Making Course & Med Decision Making Pertinent Labs and Imaging studies reviewed. (See chart for details) The patient's labs are significant for a hemoglobin of 11, hematocrit 33, low sodium, and a creatinine 1.4. Review of her chart shows she has had slightly low sodiums in the past. Baseline appears to be about 1.4. Her troponin is negative. EKG is unremarkable. Her chest x-ray is unremarkable. The patient's HEART score is 3, mostly for age. I have given the patient GI cocktail for her discomfort. The patient is feeling better at this time. She is now pain-free. Her workup is reassuring. She is stable for discharge at this time. [] Dragon Disclaimer Dragon Disclaimer This electronic medical record was generated, in whole or in part, using a voice recognition dictation system. Departure Departure: Impression: Primary Impression: GERD (gastroesophageal reflux disease) Additional Impression: Chest pain Disposition: HOME, SELF-CARE Condition: IMPROVED Referrals: MARS OBRIEN MD (PCP) Patient Instructions: Chest Pain (Nonspecific), [id number], Gastroesophageal Reflux Disease, Adult, [id number] Problem Qualifiers Primary Impression: GERD (gastroesophageal reflux disease) Esophagitis presence: without esophagitis Qualified Codes: K21.9 - Gastro- esophageal reflux disease without esophagitis Additional Impression: Chest pain Chest pain type: other chest pain Qualified Codes: R07.89 - Other chest pain LILIA VOSS DO Jul 13, 2018 16:35
[2018-07-13 16:39] LABS: BASO # 0.1 x10^3/uL (0.0-0.2); BASO % 1 % (0-3); EOS % 1 % (0-3); LYMPH # 0.7 x10^3/uL (1.0-4.8); LYMPH % 11 % (24-48); MEAN CORPUSCULAR HEMOGLOBIN 30 pg (25-35); MEAN CORPUSCULAR HGB CONC 33 g/dL (31-37); MEAN CORPUSCULAR VOLUME 89 fL (79-100); MONO # 0.9 x10^3/uL (0.0-1.1); MONO % 14 % (0-9); NEUT # 4.8 x10^3uL (1.8-7.7); NEUT % 74 % (31-73); PLATELET COUNT 195 x10^3/uL (140-400); RED BLOOD COUNT 3.69 x10^6/uL (3.50-5.40); RED CELL DISTRIBUTION WIDTH 14.8 % (11.5-14.5); WHITE BLOOD COUNT 6.5 x10^3/uL (4.0-11.0)
[2018-07-13] MEDS ORDERED: LIDO:MAALOX 1:1 20 ML SINGLE DOSE. PO ONE (16:50)
--- NOTE | 2018-07-13 16:51 | RAD ---
Indication:CHEST PAIN TECHNIQUE:Portable AP chest X-ray COMPARISON:06/16/2018 FINDINGS: Heart is normal in size. Lungs are clear. No pneumothorax or effusion. Visualized bony thorax is within normal limits. IMPRESSION: No acute pulmonary process. Electronically signed by: Zay Lemus DO (07/13/2018 4:48 PM) [facility]
[2018-07-13 16:53] LABS: ALBUMIN 2.7 g/dL (3.4-5.0); ALBUMIN/GLOBULIN RATIO 0.7 (1.0-1.7); CALCIUM 8.9 mg/dL (8.5-10.1); CREATININE 1.4 mg/dL (0.6-1.0); GFR 43.3; POTASSIUM 3.8 mmol/L (3.5-5.1); TOTAL BILIRUBIN 0.5 mg/dL (0.2-1.0); TOTAL PROTEIN 6.4 g/dL (6.4-8.2)
[2018-07-13 17:10] VITALS: BP 144/62
--- NOTE | 2018-07-13 21:55 | EKG ---
[address] [address] Test Date: 2018-07-13 Test Time: 16:16:49 Pat Name: ANGELINA BRUNNER Department: Room: Gender: F Art Handler: : 1935 Requested By: LILIA VOSS Order Number: [id number] Reading MD: Agustin Peterson MD Measurements Intervals [place] Rate: 81 P: -36 [place]: 200 QRS: 0 QRSD: 76 T: 70 QT: 362 QTc: 421 Interpretive Statements SINUS RHYTHM NON-SPECIFIC ST/T CHANGES Electronically Signed On 07-16-2018 10:06:43 CDT by Agustin Peterson MD
== END 2018-07-13 17:38 | disposition home or self-care (01) ==
LOC: ER 15:58
DX: K21.9 Gastro-esophageal reflux disease without esophagitis (principal); M19.90 Unspecified osteoarthritis, unspecified site; E11.9 Type 2 diabetes mellitus without complications; I10 Essential (primary) hypertension; E03.9 Hypothyroidism, unspecified; Z88.1 Allergy status to other antibiotic agents; Z88.8 Allergy status to other drugs, medicaments and biological substances; Z88.2 Allergy status to sulfonamides
CPT/HCPCS: 36415; 71045; 80053; 84484; 85025; 93005; 99284

== ENCOUNTER 2018-07-14 11:30 | Emergency (ER) | payer MEDICARE, OTHER ==
[~2018-07-14] VITALS: Ht 154.9 cm; Wt 76.8 kg
[2018-07-14] MEDS ORDERED: ONDANSETRON ODT 4 MG TAB.RAPDIS PO ONE (12:15)
[2018-07-14] MEDS ORDERED: traMADol 50 MG TABLET PO ONE (12:15)
--- NOTE | 2018-07-14 12:18 | PHYS DOC ---
Past History Past Medical History: Arthritis, Cancer, Diabetes, Hypertension, Hypothyroid, Renal Disease Past Surgical History: Cancer Surgery Alcohol Use: None Drug Use: None Adult General Chief Complaint Chief Complaint: MULTIPLE COMPLAINTS HPI HPI 82-year-old female returns to the emergency room with left wrist pain. The patient has been in this emergency room last 3 days. 2 days ago she had swelling of the left wrist and pain. Her x-rays showed possible triquetral avulsion fracture. She was placed in a Velcro splint and given Tylenol 3. Patient was taking the medication but had some complications with her GI tract yesterday. She came to the emergency room for this yesterday. I saw the patient at that time. We were able to calm her stomach with a GI cocktail. He was then discharged to home. She returns today because she continues to have left wrist swelling and pain. The patient is not taking her pain medication because of the GI side effects. She denies fever or chills. Review of Systems Review of Systems Constitutional: Denies fever or chills [] Eyes: Denies change in visual acuity, redness, or eye pain [] HENT: Denies nasal congestion or sore throat [] Respiratory: Denies cough or shortness of breath [] Cardiovascular: No additional information not addressed in HPI [] GI: Denies abdominal pain, nausea, vomiting, bloody stools or diarrhea [] : Denies dysuria or hematuria [] Musculoskeletal: Left wrist pain [] Integument: Denies rash or skin lesions [] Neurologic: Denies headache, focal weakness or sensory changes [] Endocrine: Denies polyuria or polydipsia [] All other systems were reviewed and found to be within normal limits, except as documented in this note. Current Medications Current Medications Current Medications Medications (Trade) Dose Ordered Sig/Tenzin Start Time Stop Time Status Last Admin Dose Admin Ondansetron HCl (Zofran Odt) 4 mg 1X ONCE 07/14/18 12:15 07/14/18 12:16 Tramadol HCl (Ultram) 50 mg 1X ONCE 07/14/18 12:15 07/14/18 12:16 Allergies Allergies Allergies Coded Allergies Type Severity Reaction Last Updated Verified pregabalin Allergy Severe Anaphylaxis 05/02/17 Yes bacitracin Allergy Intermediate Hives 05/02/17 Yes neomycin Allergy Intermediate Hives 1/9/18 Yes polymyxin B Allergy Intermediate Hives 05/02/17 Yes Sulfa (Sulfonamide Antibiotics) Allergy Mild Hives 05/02/17 Yes erythromycin base Allergy Mild Hives 05/02/17 Yes diazepam Allergy Unknown 06/12/18 Yes ether Allergy Unknown 06/12/18 Yes Physical Exam Physical Exam Constitutional: Well developed, well nourished, no acute distress, non-toxic appearance. [] HENT: Normocephalic, atraumatic, bilateral external ears normal, oropharynx moist, no oral exudates, nose normal. [] Eyes: PERRLA, EOMI, conjunctiva normal, no discharge. [] Neck: Normal range of motion, no tenderness, supple, no stridor. [] Cardiovascular:Heart rate regular rhythm, no murmur [] Lungs & Thorax: Bilateral breath sounds clear to auscultation [] Abdomen: Bowel sounds normal, soft, no tenderness, no masses, no pulsatile masses. [] Skin: Warm, dry, no erythema, no rash. [] Back: No tenderness, no CVA tenderness. [] Extremities: Tenderness over the posterior left wrist, mild to moderate swelling , slight warmth.[] Neurologic: Alert and oriented X 3, normal motor function, normal sensory function, no focal deficits noted. [] Psychologic: Affect normal, judgement normal, mood normal. [] Current Patient Data Vital Signs Vital Signs Date Time Temp Pulse Resp B/P (MAP) Pulse Ox O2 Delivery O2 Flow Rate FiO2 07/14/18 11:40 98.1 90 16 100 Room Air EKG EKG [] Radiology/Procedures Radiology/Procedures [] Course & Med Decision Making Course & Med Decision Making Pertinent Labs and Imaging studies reviewed. (See chart for details) The patient refused any narcotic based pain medication. We did give her 650 mg of Tylenol. She felt like this was enough to control her pain like to go home. She is stable for discharge at this time. [] Dragon Disclaimer Dragon Disclaimer This electronic medical record was generated, in whole or in part, using a voice recognition dictation system. Departure Departure: Impression: Primary Impression: Avulsion fracture of left wrist Referrals: MARS OBRIEN MD (PCP) Patient Instructions: Wrist Fracture LILIA VOSS DO Jul 14, 2018 12:18
[2018-07-14] MEDS ORDERED: ACETAMINOPHEN 325 MG TABLET PO ONE (12:30)
[2018-07-14 12:41] VITALS: BP 126/86
== END 2018-07-14 12:58 | disposition home or self-care (01) ==
LOC: ER 11:30
DX: S62.102A Fracture of unspecified carpal bone, left wrist, initial encounter for closed fracture (principal); M19.90 Unspecified osteoarthritis, unspecified site; E11.9 Type 2 diabetes mellitus without complications; I10 Essential (primary) hypertension; E03.9 Hypothyroidism, unspecified; Z88.1 Allergy status to other antibiotic agents; Z88.8 Allergy status to other drugs, medicaments and biological substances; Z88.2 Allergy status to sulfonamides; X58.XXXA Exposure to other specified factors, initial encounter; Y93.89 Activity, other specified; Y92.89 Other specified places as the place of occurrence of the external cause; Y99.8 Other external cause status
CPT/HCPCS: 99283